=== PATIENT | female | born 1970 | race Two or more races ===

== ENCOUNTER 2025-01-27 18:10 | Inpatient (IN) | payer BC, MEDICAID ==
[~2025-01-27] VITALS: Ht 149.9 cm; Wt 63.9 kg
--- NOTE | 2025-01-27 18:44 | ED.PDOC ---
History of Present Illness HPI Comments 54 y/o F, with a history of HTN, presents with c/o speech aphasia, that began 2- 3 hours ago, this afternoon. Patient is a poor historian. She reports on sudden and unprovoked onset of difficulty expressing her thoughts and words via speech. Patient also endorses on having associated left-sided headache she woke with prior to speech aphasia that has since subsided on its own. No recent head injuries, prior ailments, sick contact, or history of stroke endorsed. She denies any vision changes, headaches, dizziness, facial droop, weakness, or further associated symptoms. Upon arrival to ED, patient was found with a blood pressure of 164/79 in triage. Chief Complaint: Headache Time Seen by MD: 18:30 Primary Care Provider: JOHNK Reviewed Notes: Nurses Notes, Medications, Allergies Allergies: Coded Allergies: NO KNOWN ALLERGIES (Unverified , 08/10/14) Information Source: Patient Mode of Arrival: Ambulatory Severity: Moderate Timing: Hours Duration: Since onset Prehospital treatment: None Review of Systems: REVIEW OF SYSTEMS: No fever, no chills, or fatigue HEENT: No sore throat, no earache, no congestion, no neck pain. Cardiac: No chest pain. No palpitations. Lungs: No shortness of breath, no cough. GI: No nausea, no vomiting, no diarrhea, no constipation, no abdominal pain : No dysuria, frequency, or urgency. No hematuria. Musculoskeletal: No joint pain , no joint swelling, no extremity edema. Skin: No rash, no itching. Neuro: Speech aphasia, No headache, no dizziness, no weakness Vital Signs Vital Signs Date Time Temp Pulse Resp B/P (MAP) Pulse Ox O2 Delivery O2 Flow Rate FiO2 01/27/25 21:23 110 174/93 01/27/25 21:15 98.0 15 94 98.0 01/27/25 19:45 Room Air* 0 21 Physical Exam General: Awake, alert and oriented. No acute distress. Skin: Skin in warm, dry and intact. Appropriate color for ethnicity. HEENT: The head is normocephalic and atraumatic. Conjunctivae are clear without exudates or hemorrhage. Sclera is non-icteric. EOM are intact. No signs of nystagmus. Eyelids are normal in appearance without swelling or lesions. Oral mucosa is pink and moist Neck: The neck is supple with normal range of motion. No JVD. Cardiac: Heart rate and rhythm are normal. No murmurs, gallops, or rubs are aus cultated. Respiratory: No signs of respiratory distress. Lung sounds are clear in all lobes bilaterally without rales, rhonchi, or wheezes. Abdominal: Abdomen is soft, non-tender without distention, guarding or rigidity. Bowel sounds are present and normoactive in all four quadrants. Extremities: Upper and lower extremities are atraumatic in appearance without deformity or edema. Neurological: The patient is awake, alert and oriented to person, place, and time with normal speech. Speech is clear. There is no facial asymmetry. Difficulty with word finding and slow to respond to commands Psychiatric: Appropriate mood and affect. Good judgement and insight. Past Medical History PAST MEDICAL HISTORY: HTN Surgical History: Appendectomy, BTL, Cholecystectomy, EDUCATION RN History: No Pertinent EDUCATION RN History Family History Family History: No family hx of DM, No family hx of Heart roxana, No family hx of HTN Social History Smoker: Non-Smoker Alcohol: Denies ETOH Use Drugs: Denies Drug Use Lives In: Home Was a procedure done? Was a procedure done?: No Differential Dx Considerations may include: CVA, TIA, anxiety, electrolyte imbalance, dehydration, toxic metabolites, drugs metabolic encephalopathy X-Ray, Labs, Meds, VS Vital Signs Date Time Temp Pulse Resp B/P (MAP) Pulse Ox O2 Delivery O2 Flow Rate FiO2 01/27/25 21:23 110 174/93 01/27/25 21:15 98.0 103 15 168/96 (120) 94 98.0 01/27/25 21:00 98.8 99 12 175/96 (122) 93 98.8 01/27/25 20:45 98.8 105 11 165/77 (106) 95 98.8 01/27/25 20:37 107 01/27/25 20:30 98.8 100 14 164/84 (110) 97 98.8 01/27/25 20:00 94 01/27/25 19:45 92 12 97 Room Air* 0 21 01/27/25 19:45 98.8 95 16 168/81 (110) 98.8 01/27/25 18:15 98.8 82 18 164/79 (107) 97 98.8 Lab Test 01/27/25 20:00 01/27/25 19:59 01/27/25 19:12 01/27/25 19:08 Range/Units Urine Color Light-yellow Yellow Urine Clarity Clear Clear Urine pH 7.0 5.0-9.0 Urine Specific [place] 1.047 H 1.001-1.035 Urine Protein Negative Negative Urine Ketones 1+ H Negative Urine Blood Negative Negative /uL Urine Nitrite Negative Negative Urine Bilirubin Negative Negative Urine Urobilinogen Normal Negative mg/dL Urine Leukocyte Esterase Negative Negative /uL Urine RBC 1 0 - 4 /hpf Urine Microscopic WBC 1 0-5 /HPF Urine Squamous Epithelial Cells Few <5 /hpf Urine Bacteria Few H None Seen /hpf Urine Creatinine 14.74 L 30.0-125.0 mg/dL Urine Protein/Creatinine Ratio 0.56 Urine Glucose 4+ H Normal mg/dL Urine Total Protein 8.3 1-14 mg/dL Urine Test Negative Negative Urine Opiates Screen Neg NEGATIVE Urine Fentanyl Screen Neg NEGATIVE Urine Barbiturates Screen Neg NEGATIVE Urine Phencyclidine Screen Neg NEGATIVE Urine Amphetamines Screen Neg NEGATIVE Urine Benzodiazepines Screen Neg NEGATIVE Urine Cocaine Screen Neg NEGATIVE Urine Cannabinoids Screen Neg NEGATIVE Creatine Kinase 90 34-145 U/L Troponin I High Sensitivity 192 *H 48 *H </=34 ng/L C-Reactive Protein High Sensitivity 0.56 <1.0 mg/dL White Blood Count 9.9 4.4-10.8 10^3/uL Red Blood Count 4.78 4.0-5.20 10^6/uL Hemoglobin 13.9 12.2-16.2 g/dL Hematocrit 41.4 36.0-46.0 % Mean Corpuscular Volume 86.7 80.0-100.0 fL Mean Corpuscular Hemoglobin 29.1 28.0-32.0 pg Mean Corpuscular Hemoglobin Concent 33.6 32.0-36.0 g/dL Red Cell Distribution Width 13.6 11.8-14.3 % Platelet Count 289 140-450 10^3/uL Mean Platelet Volume 7.5 6.9-10.8 fL Neutrophils (%) (Auto) 57.8 37.0-80.0 % Lymphocytes (%) (Auto) 34.3 10.0-50.0 % Monocytes (%) (Auto) 5.8 0.0-12.0 % Eosinophils (%) (Auto) 1.6 0.0-7.0 % Basophils (%) (Auto) 0.5 0.0-2.0 % Neutrophils # (Auto) 5.7 1.6-8.6 10 ^3/uL Lymphocytes # (Auto) 3.4 0.4-5.4 10 ^3/uL Monocytes # (Auto) 0.6 0-1.3 10 ^3/uL Eosinophils # (Auto) 0.2 0-0.8 10 ^3/uL Basophils # (Auto) 0 0-0.2 10 ^3/uL Nucleated Red Blood Cells 0.1 % Prothrombin Time 10.1 9.3-11.8 sec Prothrombin Time INR 0.95 0.9-1.15 Activated Partial Thromboplast Time 26.9 24.5-34.5 SEC Sodium Level 131 L 136-145 mmol/L Potassium Level 3.6 3.5-5.1 mmol/L Chloride Level 96 L 98-107 mmol/L Carbon Dioxide Level 26 20-31 mmol/L Anion Gap 9 5-15 Blood Urea Nitrogen 8 L 9-23 mg/dL Creatinine 0.67 0.550-1.02 mg/dL Glomerular Filtration Rate Calc 105 >90 mL/min BUN/Creatinine Ratio 11.9 10.0-20.0 Serum Glucose 353 H 74-106 mg/dL Hemoglobin A1c 12.0 H <5.7 % A1C Calcium Level 8.9 8.7-10.4 mg/dL Magnesium Level 1.8 1.6-2.6 mg/dL Total Bilirubin 0.7 0.2-1.0 mg/dL Aspartate Amino Transferase (AST) 27 <34 U/L Alanine Aminotransferase (ALT) 43 H 7-40 U/L Alkaline Phosphatase 160 H 46-116 U/L B-Type Natriuretic Peptide 9.26 0-100 pg/mL Total Protein 6.6 5.7-8.2 g/dL Albumin 4.2 3.2-4.8 g/dL Beta-Hydroxybutyric Acid 0.473 H < 0.4 mmol/L Prolactin 18.47 2.8-29.2 ng/mL Blood Gas Specimen Type Arterial Blood Gas Sample Site Left radial Blood Gas Patient Temperature 37.0 Arterial Blood Date Drawn [id number] Arterial Blood pH 7.499 H 7.350-7.450 Arterial Blood Partial Pressure CO2 28.7 L 32.0-45.0 mmHg Arterial Blood Partial Pressure O2 76.7 L 83.0-108.0 mmHg Arterial Blood HCO3 21.8 21.0-28.0 mmol/L Arterial Blood Oxygen Saturation 96.0 94.0-98.0 % Arterial Blood Base Excess -0.1 -2.0-3.0 mmol/L Arterial Blood Oxyhemoglobin 94.5 94.0-98.0 % Arterial Blood Carboxyhemoglobin 1.0 0.5-1.5 % Arterial Blood Methemoglobin 0.6 0.0-1.5 % Donnie Test Yes Blood Gas Total Hemoglobin 14.50 12.0-16.0 g/dL Blood Gas Modality Room air FiO2 % 21.0 Blood Gas Critical Value Read Back Yes Test 01/27/25 18:33 Range/Units POC Glucose 385 H 70-106 mg/dl Current Medications Medications (Trade) Dose Ordered Sig/Cm Route Start Time Stop Time Status Last Admin Sodium Chloride 1,000 ml @ 1,000 mls/hr Q1H ONCE IV 01/27/25 19:00 01/27/25 19:59 DC 01/27/25 19:35 Insulin Human Regular (InsuLIN R) 4 units ONCE ONCE IV 01/27/25 20:15 01/27/25 20:17 DC 01/27/25 20:29 Diagnostic Test (Pha) (Accu-Chek Comfort Curve T) 1 strip ONCE STAT 01/27/25 20:14 01/27/25 20:17 DC 01/27/25 20:26 Labetalol HCl (Labetalol HCl) 10 mg ONCE ONCE IV 01/27/25 21:15 01/27/25 21:16 DC 01/27/25 21:23 [place] [address] Ph: [phone] DIAGNOSTIC IMAGING Diagnostic Imaging Report : [id number] Signed PATIENT: JOVANI PULIDO ACCT: [id number] UNIT: [id number] : 1970 LOC: ER ROOM / BED: / AGE / SEX: 54 / F ADM STATUS: REG ER SERVICE [id number] ORDERING PHYSICIAN: NYA COTTO MD PROCEDURE(s): CXR1 - CHEST XRAY 1 VIEW REASON: suspected stroke ORDER NUMBER(s): [id number], ACCESSION NUMBER(s): [id number] CHEST RADIOGRAPH Indication: suspected stroke Technique: Single frontal view of the chest was obtained Comparison: None FINDINGS: Lines and Tubes: None Lungs: No focal consolidation. Pleura: No effusion. No pneumothorax. Cardiomediastinal contours: Unremarkable Bones: No acute osseous abnormality. IMPRESSION: No acute cardiopulmonary disease. ATED BY: NURIA PEPPER MD DICTATED DATE/TIME: 01/27/251926 SIGNED BY: NURIA PEPPER MD SIGNED DATE/TIME: 01/27/251926 CC: [place] [address] Ph: [phone] DIAGNOSTIC IMAGING Diagnostic Imaging Report : [id number] Signed PATIENT: JOVANI PULIDO ACCT: [id number] UNIT: [id number] : 1970 LOC: ER ROOM / BED: / AGE / SEX: 54 / F ADM STATUS: REG ER SERVICE [id number] ORDERING PHYSICIAN: NYA COTTO MD PROCEDURE(s): [place] - ANGIO HEAD/Neck REASON: suspected stroke ORDER NUMBER(s): [id number], ACCESSION NUMBER(s): [id number] INDICATION: suspected stroke COMPARISON: None TECHNIQUE: CTA head without and with intravenous contrast. CTA neck with intravenous contrast. 3D image postprocessing was performed on a dedicated workstation and images were used for interpretation and reporting. Radiation Dose Information: CT Dose: CTDI volume is 52.17 mGy. Dose-length product is 1554.63 mGy*cm FINDINGS: CT head: There is no evidence of acute intracranial hemorrhage, extra-axial collection, mass effect, midline shift, herniation or hydrocephalus. The ventricles, sulci and cisterns are age appropriate. The young-white differentiation is intact. The visualized paranasal sinuses and mastoid air cells are clear. The surrounding soft tissues and osseous structures are unremarkable. CTA head: There is normal enhancement of the visualized distal internal carotid, anterior and middle cerebral arteries. There is a normal anterior communicating artery complex. There are bilateral posterior communicating arteries. The vertebral, basilar, cerebellar and posterior cerebral arteries are within normal limits. The early parenchymal enhancement is grossly unremarkable. The visualized intracranial venous structures are grossly unremarkable. CTA neck: The visualized thoracic aortic arch and proximal great vessels are unremarkable. The left common, internal and external carotid arteries are within normal limits. The right common, internal and external carotid arteries are within normal limits. The cervical segments of the right and left vertebral arteries are within normal limits. The limited visualized lung apices are clear. The surrounding soft tissues and osseous structures are otherwise unremarkable. IMPRESSION: No evidence of acute intracranial hemorrhage, mass effect or hydrocephalus. No evidence of hemodynamically significant intracranial stenosis, proximal occlusion or aneurysm. No evidence of hemodynamically significant cervical stenosis or dissection. All CT scans at this medical facility are performed using dose modulation techniques as appropriate to a performed exam including the following: Automated exposure control was utilized; adjustment of the MA and/or KV according to patient size; and use of iterative reconstruction technique. ATED BY: EMMANUEL ATKINSON MD DICTATED DATE/TIME: 01/27/252109 SIGNED BY: EMMANUEL ATKINSON MD SIGNED DATE/TIME: 01/27/252109 CC: Time of 1ST Reevaluation: 19:00 Reevaluation 1ST: Unchanged Patient Education/Counseling: Other (Need for admission ) Family Education/Counseling: No Family Present SEPSIS Sepsis Screen Physician Orders Stroke Assessment (01/27/25 18:36) Vital Signs .PER UNIT PROTOCOL (01/27/25 18:36) Communications Consultant (01/27/25 18:36) Accurate Weight In Kg (01/27/25 18:36) Electrocardigram (01/27/25 18:36) Accucheck (01/27/25 18:36) Angio Head/Neck (01/27/25 18:36) Chest Xray 1 View (01/27/25 18:36) * Neurology Consult (01/27/25 18:36) 2 Large Bore Ivs (20mg Or Larg (01/27/25 18:36) Nursing Dysphagia Screen (01/27/25 18:36) Neuro Checks Per Unit Protocol (01/27/25 18:36) Electrocardigram (01/27/25 19:36) Electrocardigram (01/27/25 21:36) [place] Neuro Consult (01/27/25 18:36) Abg W/ Co-Ox (01/27/25 18:47) Saline Lock (01/27/25 18:47) Vital Signs Date Time Temp Pulse Resp B/P (MAP) Pulse Ox O2 Delivery O2 Flow Rate FiO2 01/27/25 21:23 110 174/93 01/27/25 21:15 98.0 103 15 168/96 (120) 94 98.0 01/27/25 21:00 98.8 99 12 175/96 (122) 93 98.8 01/27/25 20:45 98.8 105 11 165/77 (106) 95 98.8 01/27/25 20:37 107 01/27/25 20:30 98.8 100 14 164/84 (110) 97 98.8 01/27/25 20:00 94 01/27/25 19:45 92 12 97 Room Air* 0 21 01/27/25 19:45 98.8 95 16 168/81 (110) 98.8 01/27/25 18:15 98.8 82 18 164/79 (107) 97 98.8 Laboratory Tests Test 01/27/25 19:12 White Blood Count 9.9 10^3/uL (4.4-10.8) Medications Medications Dose Ordered Sig/Cm Route Start Time Stop Time Status Last Admin Dose Admin Diagnostic Test (Pha) 1 strip ONCE STAT 01/27/25 20:14 01/27/25 20:17 DC 01/27/25 20:26 Insulin Human Regular 4 units ONCE ONCE IV 01/27/25 20:15 01/27/25 20:17 DC 01/27/25 20:29 Labetalol HCl 10 mg ONCE ONCE IV 01/27/25 21:15 01/27/25 21:16 DC 01/27/25 21:23 Sodium Chloride 1,000 ml @ 1,000 mls/hr Q1H ONCE IV 01/27/25 19:00 01/27/25 19:59 DC 01/27/25 19:35 Departure 1 Departure Time of Disposition: 20:16 Impression: Primary Impression: Stroke-like symptom Additional Impressions: Hyperglycemia Elevated troponin I level Hypertension NSTEMI (non-ST elevated myocardial infarction) Disposition: 09 ADMITTED INPATIENT Condition: Stable Comments 54-year-old female who presented with confusion, difficulty With word finding. Was discussed with Neurology, recommendation MRI, patient is not a candidate For tPA at this time Patient found to be hyperglycemic with no known history of diabetes IV fluids, insulin administered in the ED Patient admitted to hospitalist service for further treatment, evaluation and monitoring. Patient's troponin increasing significantly. Heparin bolus and drip initiated in the emergency department. Extensive evaluation was performed in attempt to identify or rule out: (See differential diagnosis section) The following tests were ordered, and results were reviewed by me and discussed with patient: (See diagnostic results section) The following test were independently interpreted by me: N/A I reviewed and agreed with the following test results read by other providers: N/A I reviewed the following notes from the pt's past medical encounters: August 10, 2014 encounter for Urticaria Additional information was gathered from interviewing the following independent historians: N/A Discussion of management or test interpretation with external physician/other qualified health acute care nurse practitioner: Yes Addressed an acute or chronic illness that poses a threat to life or bodily function: Suspected CVA, hyperglycemia Decision regarding hospitalization or escalation of hospital level of care: Risk and benefits of admission for further treatment of patient's condition was considered. Due to patient's current clinical condition, high risk of decline and poor outcome if discharged and need for further inpatient management and monitoring, patient will be admitted to the hospital. Drug therapy requiring intensive monitoring for toxicity: IV Contrast, IV heparin Parenteral controlled substances: N/A Decision regarding elective major surgery with identified patient or procedure risk factors: N/A Decision regarding emergency major surgery: N/A Decision not to resuscitate or to de-escalate care because of poor prognosis: N/A Diagnosis or treatment significantly limited by social determinants of health: N/A Critical Care Note Critical Care Time?: No Stability Stability form required: No Heart Score Heart Score: Heart Score Response (Comments) Value History N/A 0 EKG N/A 0 Age N/A 0 Risk Factors N/A 0 Troponin N/A 0 Total 0 I personally scribed for NYA COTTO MD ([email or web address]) on 01/27/25 at 18:44. Electronically submitted by Laron Theodore ([email or web address]). I personally scribed for NYA COTTO MD ([email or web address]) on 01/27/25 at 19:33. Electronically submitted by Laron Theodore ([email or web address]). I personally scribed for NYA COTTO MD ([email or web address]) on 01/27/25 at 19:52. Electronically submitted by Laron Theodore ([email or web address]). I personally scribed for NYA COTTO MD ([email or web address]) on 01/27/25 at 21:33. Electronically submitted by Laron Theodore ([email or web address]). NYA COTTO MD Jan 27, 2025 18:44
[2025-01-27 19:15] LABS: Base Excess -0.1 mmol/L (-2.0-3.0)
--- NOTE | 2025-01-27 19:25 | BSKYNEURO ---
[facility] Note # Demographics Consult Type: Acute Stroke Level 1 (0-4.5 hrs) Patient Location: Emergency Room First Name: JOVANI Last Name: ASHOK Date of : 1970 Age: 54 Gender: Female Facility: [facility] Time of Initial Page (): 01/27/2025 18:52 Time of Return Call (): 01/27/2025 18:52 # HPI History: Here with difficulty speaking and walking today. Last Known Normal: prior to 1400 pst which is when she was found by . # Scores Time of exam and NIHSS (): 01/27/2025 19:18 Level of Consciousness 1a: [0] = Alert; keenly responsive LOC Questions 1b: [1] = Answers one correctly LOC Commands 1c: [0] = Performs both tasks correctly Best Gaze 2: [0] = Normal Visual 3: [0] = No visual loss Facial Palsy 4: [0] = Normal symmetrical movements Motor Arm Left 5a: [0] = No drift Motor Arm Right 5b: [0] = No drift Motor Leg Left 6a: [0] = No drift Motor Leg Right 6b: [0] = No drift Limb Ataxia 7: [0] = Absent Sensory 8: [0] = Normal Best Language 9: [1] = Alzn-al-yovvklbb aphasia Dysarthria 10: [0] = Normal Extinction and Inattention 11: [0] = No abnormality NIHSS Total: 2 # Data Glucose: - hyperglycemia [address]: - no bleed - preliminarily reviewed by me, please refer to radiology read for official reading # Assessment Impression: - Altered Mental Status Stroke vs toxometabolic cause. # Plan Thrombolytic/Intervention: Possible IA candidate Thrombolytic Exclusion: > 4.5 hours Possible IA Candidate: - no signs and symptoms of LVO - CTA pending Target Blood Pressure: - SBP < 220 sbp< 180 if cta negative for acute lesion Labs: - Ammonia - B12 - ua - urine drug screen - TSH Imaging: (urgency: STAT): - CT Angiogram Head and CT Angiogram Neck AND call back with results if abnormal Medication: asa 325 today Other: - If patient has any neurological deterioration please call me back immediately - would not pursue stroke work-up if MRI is negative - I have discussed my recommendations with the referring provider Additional Recommendations: mri brain if persistent deficits without etiology # Logistics Attestation of consult completion: The patient is located at: [facility]. Facility staff participated in the visit. I performed this telemedicine visit from my offsite office utilizing interactive 2 way audio and visual telecommunication technology. Total time spent in telemedicine encounter: I spent 21 minutes reviewing clinical data and/or imaging, obtaining history, examining the patient, communicating with the onsite care team, and in preparation of this report. Critical Care time: 21 minutes of this encounter were critical care time. Due to a high probability of clinically significant, life-threatening neurologic deterioration, the patient required my highest level of preparedness to intervene emergently. I spent this critical care time managing the patient in conjunction with on-site providers who requested my consultation. In addition to the above, this critical care time included recommendation and review of studies, including imaging; arranging an urgent treatment and management plan with on-site providers; evaluation of patient's response to treatment; and documentation. This critical care time was performed to assess and manage the high probability of imminent, life-threatening deterioration that could result in neurologic catastrophe. # Demographics First Name: JOVANI Last Name: ASHOK Facility: [facility] Electronically signed at 01/27/2025 19:24 ([place] Time) by MD Candice Alfred ZACHARY I MD Jan 27, 2025 19:25
--- NOTE | 2025-01-27 19:30 | DVH ---
CHEST RADIOGRAPH Indication: suspected stroke Technique: Single frontal view of the chest was obtained Comparison: None FINDINGS: Lines and Tubes: None Lungs: No focal consolidation. Pleura: No effusion. No pneumothorax. Cardiomediastinal contours: Unremarkable Bones: No acute osseous abnormality. IMPRESSION: No acute cardiopulmonary disease.
[2025-01-27 19:34] LABS: Basophils # (auto) 0 10 ^3/uL (0-0.2); Basophils % (auto) 0.5 % (0.0-2.0); Eosinophils # (auto) 0.2 10 ^3/uL (0-0.8); Eosinophils % (auto) 1.6 % (0.0-7.0); Hematocrit 41.4 % (36.0-46.0); Hemoglobin 13.9 g/dL (12.2-16.2); Lymphocytes # (auto) 3.4 10 ^3/uL (0.4-5.4); Lymphocytes % (auto) 34.3 % (10.0-50.0); Mean Corpuscular Hemoglobin 29.1 pg (28.0-32.0); Mean Corpuscular Hgb Conc. 33.6 g/dL (32.0-36.0); Mean Corpuscular Volume 86.7 fL (80.0-100.0); Monocytes # (auto) 0.6 10 ^3/uL (0-1.3); Monocytes % (auto) 5.8 % (0.0-12.0); Neutrophils # (auto) 5.7 10 ^3/uL (1.6-8.6); Neutrophils % (auto) 57.8 % (37.0-80.0); Nucleated Red Blood Cells % 0.1 %; Platelet Count (auto) 289 10^3/uL (140-450); Red Blood Cells 4.78 10^6/uL (4.0-5.20); Red Cell Distribution Width 13.6 % (11.8-14.3); White Blood Cell 9.9 10^3/uL (4.4-10.8)
[2025-01-27] MEDS: SODIUM CHLORIDE 0.9% 1,000 ML IV ONE (19:35)
[2025-01-27] MEDS: IOHEXOL 350 MG/ML 100ML IJ ONE (19:35)
[2025-01-27 19:45] VITALS: PULSE 92; RESP 12; O2SAT 97
[2025-01-27] MEDS ORDERED: LABETALOL HCL 20 MG/4 ML VL IV ONE (19:45)
[2025-01-27 19:51] LABS: Albumin 4.2 g/dL (3.2-4.8); Anion Gap 9 (5-15); Aspartate Aminotransferase 27 U/L (<34); BUN/Creatinine Ratio 11.9 (10.0-20.0); Calcium 8.9 mg/dL (8.7-10.4); Carbon Dioxide 26 mmol/L (20-31); Magnesium 1.8 mg/dL (1.6-2.6); Potassium 3.6 mmol/L (3.5-5.1); Total Protein 6.6 g/dL (5.7-8.2)
[2025-01-27 19:52] LABS: Bilirubin, Total 0.7 mg/dL (0.2-1.0); INR 0.95 (0.9-1.15); Partial Thromboplastin Time 26.9 SEC (24.5-34.5); Prothrombin Time 10.1 sec (9.3-11.8)
[2025-01-27 19:55] LABS: Alanine Aminotransferase 43 U/L (7-40); Alkaline Phosphatase 160 U/L (46-116); Blood Urea Nitrogen 8 mg/dL (9-23); Chloride 96 mmol/L (98-107); Glucose 353 mg/dL (74-106); Sodium 131 mmol/L (136-145)
[2025-01-27] MEDS ORDERED: DEXTROSE (50%) 50ML SYRG IV PRN ×3 (20:15→21:45)
[2025-01-27 20:26] LABS: Urine Bacteria FEW /hpf (None Seen); Urine Blood Negative /uL (Negative); Urine Clarity Clear (Clear); Urine Color Light-Yellow (Yellow); Urine Protein, UAD Negative (Negative); Urine Specific Gravity 1.047 (1.001-1.035); Urine Squamous Epithelial Cell FEW /hpf (<5); Urine Urobilinogen Normal (Negative); Urine WBC 1 /HPF (0-5)
[2025-01-27] MEDS: ACCU-CHEK COMFORT CURVE STRIP VI STA (20:26)
[2025-01-27] MEDS: InsuLIN REG 1unit/0.01ml Soln (100units/ml) IV ONE (20:29)
--- NOTE | 2025-01-27 21:12 | DVH ---
INDICATION: suspected stroke COMPARISON: None TECHNIQUE: CTA head without and with intravenous contrast. CTA neck with intravenous contrast. 3D image postprocessing was performed on a dedicated workstation and images were used for interpretation and reporting. Radiation Dose Information: CT Dose: CTDI volume is 52.17 mGy. Dose-length product is 1554.63 mGy*cm FINDINGS: CT head: There is no evidence of acute intracranial hemorrhage, extra-axial collection, mass effect, midline s hift, herniation or hydrocephalus. The ventricles, sulci and cisterns are age appropriate. The young -white differentiation is intact. The visualized paranasal sinuses and mastoid air cells are clear. The surrounding soft tissues and osseous structures are unremarkable. CTA head: There is normal enhancement of the visualized distal internal carotid, anterior and middle cerebral a rteries. There is a normal anterior communicating artery complex. There are bilateral posterior com municating arteries. The vertebral, basilar, cerebellar and posterior cerebral arteries are within n ormal limits. The early parenchymal enhancement is grossly unremarkable. The visualized intracrania l venous structures are grossly unremarkable. CTA neck: The visualized thoracic aortic arch and proximal great vessels are unremarkable. The left common, internal and external carotid arteries are within normal limits. The right common, internal and external carotid arteries are within normal limits. The cervical segments of the right and left vertebral arteries are within normal limits. The limited visualized lung apices are clear. The surrounding soft tissues and osseous structures ar e otherwise unremarkable. IMPRESSION: No evidence of acute intracranial hemorrhage, mass effect or hydrocephalus. No evidence of hemodynamically significant intracranial stenosis, proximal occlusion or aneurysm. No evidence of hemodynamically significant cervical stenosis or dissection. All CT scans at this medical facility are performed using dose modulation techniques as appropriate t o a performed exam including the following: Automated exposure control was utilized; adjustment of th e MA and/or KV according to patient size; and use of iterative reconstruction technique.
[2025-01-27] MEDS ORDERED: ACCU-CHEK COMFORT CURVE STRIP VI ONE (21:15)
[2025-01-27] MEDS: LABETALOL HCL 20 MG/4 ML VL IV ONE ×2 (21:23→22:14)
[2025-01-27] MEDS ORDERED: NITROGLYCERIN 0.4 MG SL TAB SL PRN (21:30)
[2025-01-27 22:04] LABS: CRP High Sensitivity 0.56 mg/dL (<1.0)
[2025-01-27] MEDS: ASPirin 81 mg TAB PO ONE (22:11)
[2025-01-27] MEDS: ATORVASTATIN 20 MG TAB PO ONE (22:12)
--- NOTE | 2025-01-27 22:20 | DVHINCON2 ---
Date of service: Jan 27, [address] Betts Reason for Consultation Stroke-like syndrome History of Present Illness Mr. Encarnacion is a 54 years old right-handed female with a history of hypertension, overweight, the patient was brought to the [facility] on 01/27/2025 with a chief complaint of speech disturbance, at that time, she is alert, a presumed fully oriented, but is with problem to express herself, the history is obtained from her daughter, I have also reviewed the chart When her returned home, he noticed the patient's speech was slurry. According to ER note, the patient had unprovoked new onset difficulty expressing her sought. She reports mild left sided headache She has never had similar problems previously, no history of stroke heart attack She snores loud, and family has noticed signs of sleep apnea on her, she also wakes up up from sleep choking sometimes Urinalysis, 01/27/2025: Unremarkable CBC, 01/27/25: ok TBI/AST/ALT/AP, 01/27/2025: 03/07/2040 3/160 Glucose, 01/27/2025: 385 Beta hydroxybutyric acid, 01/27/2025: 0.473 CT head, 01/27/2025: No evidence of acute intracranial hemorrhage, mass effect or hydrocephalus. CT head, neck, 01/27/2025: No evidence of hemodynamically significant intracranial stenosis, proximal occlusion or aneurysm. No evidence of hemodynamically significant cervical stenosis or dissection. Past Medical History Hypertension, overweight Past Surgical History Cholecystectomy Family History Hypertension, diabetes, stroke Social History She is not a tobacco smoke, she denies a history of alcohol or recreational substance abuse Allergies: Coded Allergies: NO KNOWN ALLERGIES (Unverified , 08/10/14) Current Medications Current Medications Medications (Trade) Dose Ordered Sig/Cm Route PRN Reason Start Time Stop Time Status Last Admin Dextrose 50 ml PRN PRN IV Blood Sugar LESS THAN 60 01/27/25 20:15 UNV Dextrose 50 ml PRN PRN IV Blood Sugar LESS THAN 60 01/27/25 20:15 Cancel Diagnostic Test (Pha) (Accu-Chek Comfort Curve T) 1 strip ONCE STAT 01/27/25 20:14 01/27/25 20:17 DC 01/27/25 20:26 Morphine Sulfate 2 mg Q30M PRN IV FOR CHEST PAIN 01/27/25 21:30 Nitroglycerin (Ntrostat Sublingual) 0.4 mg Q5MINP PRN SL FOR CHEST PAIN 01/27/25 21:30 Diagnostic Test (Pha) (Accu-Chek Comfort Curve T) 1 strip Q4H 01/28/25 00:00 Insulin Human Regular (InsuLIN R) Q4H SC 01/28/25 00:00 Dextrose 50 ml UD PRN IV Blood Sugar LESS THAN 60 01/27/25 21:45 Review of Systems As above, the other systems are negative Vital Signs Vital Signs Date Time Temp Pulse Resp B/P (MAP) Pulse Ox O2 Delivery O2 Flow Rate FiO2 01/27/25 21:23 110 174/93 01/27/25 20:30 98.8 14 97 98.8 Physical Exam GENERAL EXAM: General: the patient is well developed and nourished. No acute distress. HEENT: Normocephalic, neck is supple, no carotid bruits. No mass. RESPIRATORY: Normal respiratory effort with symmetrical lung expansion. Lungs clear to auscultation. CARDIOVASCULAR: Regular rate and rhythm with no murmurs. S1, S2. ABDOMEN: Soft, nontender, normal bowel sound NEUROLOGICAL: MENTAL STATUS: Waking alert, a presumed she is oriented fully SPEECH, LANGUAGE, HIGHER CORTICAL FUNCTION: Expressive aphasia, voice is clear. CRANIAL NERVES: #2: Intact visual engle to confrontation. The optic discs were sharp. #3,4,6: Pupils are equal, round and reactive. EOMs full and conjugate. No nystagmus. #5: Facial sensation intact in all three divisions bilaterally. Mandibular strength intact. #7: Facial muscles symmetrical and strength intact. #8: Hearing grossly normal to voice. #9,10: Uvula and soft palate rise in the midline. Swallow and voice are normal. #11: Trapezius and sternomastoid strength intact bilaterally. #12: Tongue midline. No fasciculations or atrophy. SENSATION: Sensation to touch and pinprick is normal. MOTOR: Normal tone in the upper and lower extremity. Normal muscle bulk. No fasciculations. No abnormal movements or posturing. Muscle strength of the major groups in the upper extremities is 5/5. Muscle strength of the major groups in the lower extremities is 5/5. REFLEXES: Deep tendon reflexes are symmetrical. No pathological reflexes. CEREBELLAR/COORDINATION: Finger to noseis normal bilaterally. GAIT/STATION: deferred. Labs/Diagnostic Data Labs Test 01/27/25 21:58 01/27/25 20:00 01/27/25 19:59 01/27/25 19:12 Range/Units Urine Color Light-yellow Yellow Urine Clarity Clear Clear Urine pH 7.0 5.0-9.0 Urine Specific [place] 1.047 H 1.001-1.035 Urine Protein Negative Negative Urine Ketones 1+ H Negative Urine Blood Negative Negative /uL Urine Nitrite Negative Negative Urine Bilirubin Negative Negative Urine Urobilinogen Normal Negative mg/dL Urine Leukocyte Esterase Negative Negative /uL Urine RBC 1 0 - 4 /hpf Urine Microscopic WBC 1 0-5 /HPF Urine Squamous Epithelial Cells Few <5 /hpf Urine Bacteria Few H None Seen /hpf Urine Glucose 4+ H Normal mg/dL White Blood Count 9.9 4.4-10.8 10^3/uL Red Blood Count 4.78 4.0-5.20 10^6/uL Hemoglobin 13.9 12.2-16.2 g/dL Hematocrit 41.4 36.0-46.0 % Mean Corpuscular Volume 86.7 80.0-100.0 fL Mean Corpuscular Hemoglobin 29.1 28.0-32.0 pg Mean Corpuscular Hemoglobin Concent 33.6 32.0-36.0 g/dL Red Cell Distribution Width 13.6 11.8-14.3 % Platelet Count 289 140-450 10^3/uL Mean Platelet Volume 7.5 6.9-10.8 fL Neutrophils (%) (Auto) 57.8 37.0-80.0 % Lymphocytes (%) (Auto) 34.3 10.0-50.0 % Monocytes (%) (Auto) 5.8 0.0-12.0 % Eosinophils (%) (Auto) 1.6 0.0-7.0 % Basophils (%) (Auto) 0.5 0.0-2.0 % Neutrophils # (Auto) 5.7 1.6-8.6 10 ^3/uL Lymphocytes # (Auto) 3.4 0.4-5.4 10 ^3/uL Monocytes # (Auto) 0.6 0-1.3 10 ^3/uL Eosinophils # (Auto) 0.2 0-0.8 10 ^3/uL Basophils # (Auto) 0 0-0.2 10 ^3/uL Nucleated Red Blood Cells 0.1 % Prothrombin Time 10.1 9.3-11.8 sec Prothrombin Time INR 0.95 0.9-1.15 Activated Partial Thromboplast Time 26.9 24.5-34.5 SEC Sodium Level 131 L 136-145 mmol/L Potassium Level 3.6 3.5-5.1 mmol/L Chloride Level 96 L 98-107 mmol/L Carbon Dioxide Level 26 20-31 mmol/L Anion Gap 9 5-15 Blood Urea Nitrogen 8 L 9-23 mg/dL Creatinine 0.67 0.550-1.02 mg/dL Glomerular Filtration Rate Calc 105 >90 mL/min BUN/Creatinine Ratio 11.9 10.0-20.0 Serum Glucose 353 H 74-106 mg/dL Calcium Level 8.9 8.7-10.4 mg/dL Magnesium Level 1.8 1.6-2.6 mg/dL Total Bilirubin 0.7 0.2-1.0 mg/dL Aspartate Amino Transferase (AST) 27 <34 U/L Alanine Aminotransferase (ALT) 43 H 7-40 U/L Alkaline Phosphatase 160 H 46-116 U/L B-Type Natriuretic Peptide 9.26 0-100 pg/mL Total Protein 6.6 5.7-8.2 g/dL Albumin 4.2 3.2-4.8 g/dL Beta-Hydroxybutyric Acid 0.473 H < 0.4 mmol/L Test 01/27/25 19:08 01/27/25 18:33 Range/Units Blood Gas Specimen Type Arterial Blood Gas Sample Site Left radial Blood Gas Patient Temperature 37.0 Arterial Blood Date Drawn [id number] Arterial Blood pH 7.499 H 7.350-7.450 Arterial Blood Partial Pressure CO2 28.7 L 32.0-45.0 mmHg Arterial Blood Partial Pressure O2 76.7 L 83.0-108.0 mmHg Arterial Blood HCO3 21.8 21.0-28.0 mmol/L Arterial Blood Oxygen Saturation 96.0 94.0-98.0 % Arterial Blood Base Excess -0.1 -2.0-3.0 mmol/L Arterial Blood Oxyhemoglobin 94.5 94.0-98.0 % Arterial Blood Carboxyhemoglobin 1.0 0.5-1.5 % Arterial Blood Methemoglobin 0.6 0.0-1.5 % Donnie Test Yes Blood Gas Total Hemoglobin 14.50 12.0-16.0 g/dL Blood Gas Modality Room air FiO2 % 21.0 Blood Gas Critical Value Read Back Yes POC Glucose 385 H 70-106 mg/dl Assessment Acute aphasia, to rule out acute stroke Sleep-related breathing disorder Overweight Plan/Recommendation Monitoring Supportive treatment UDS Lipitor profile Echocardiogram MR head Telemetry Aspirin 81 mg daily Lipitor 20 mg daily Speech pathology evaluation Stabilize blood pressure Glucose control Avoid fever NPO for now except for medications IV fluid Speech pathology evaluation More recommendation per clinical course Progress: Poor This medical document was created using an electronic medical record system with [employer] computerized dictation system. Although this document has been carefully reviewed, there may still be some phonetic and typographical errors. These areas are purely typographical due to imperfections of the software programs, and do not reflect any compromise in the patient's medical care. Plan discussed with: Daughter, Other JENNY GARCIA MD Jan 27, 2025 22:19
[2025-01-27 22:24] LABS: Protein, Urine 8.3 mg/dL (1-14)
[2025-01-27 22:27] LABS: Creatinine, Urine 14.74 mg/dL (30.0-125.0); Urine Protein/Creatinine Ratio 0.56
--- NOTE | 2025-01-27 22:28 | DVHHPRES ---
History of Present Illness Resident Creating Document: TAYLOR WHIPPLE RESIDENT History of Present Illness 54-year-old female with past medical history of hypertension and possible diabetes mellitus presented with complaints of "not able to speak what she is thinking" since 1400 hours. The patient was doing her normal routine homework when she started feeling that she is not able to speak what she is thinking. Patient was observed by her who mentioned that patient did not pass out, did not have any seizure activity, do not have any other neurological deficit. Patient that she had left-sided headache 1-2 days before the event. Blood pressure measured at home revealed a systolic blood pressure in 190s. Patient denied any chest pain, shortness of breath, orthopnea, PND, palpitations, nausea, vomiting, abdominal pain, constipation. Denied any blurry vision, oliguria. Currently seen and examined at bedside. Patient was mentioning improvement in her symptoms denied any other complaints. Past medical history Diabetes mellitus questionable Hypertension Past surgical history Cholecystectomy 20 years ago No recent surgery Medication history Metformin Losartan Social history Patient denied smoking, alcohol, marijuana or any other drug intake Patient lives with Allergic history No known allergies Family history Stroke in mother and stroke in brother Review of Systems Review of Systems as described in the HPI Allergies: Coded Allergies: NO KNOWN ALLERGIES (Unverified , 08/10/14) Medications Current Medications Medications Dose Ordered Sig/Cm Route Start Time Stop Time Status Last Admin Dose Admin Dextrose 50 ml PRN PRN IV 01/27/25 20:15 UNV Dextrose 50 ml PRN PRN IV 01/27/25 20:15 Cancel Morphine Sulfate 2 mg Q30M PRN IV 01/27/25 21:30 Nitroglycerin 0.4 mg Q5MINP PRN SL 01/27/25 21:30 Diagnostic Test (Pha) 1 strip Q4H 01/28/25 00:00 Insulin Human Regular Q4H SC 01/28/25 00:00 Dextrose 50 ml UD PRN IV 01/27/25 21:45 Exam Vital Signs Vital Signs Date Time Temp Pulse Resp B/P (MAP) Pulse Ox O2 Delivery O2 Flow Rate FiO2 01/27/25 22:14 92 187/97 01/27/25 20:30 98.8 14 97 98.8 Exam Examination General Appearance: Alert, Oriented X3, Cooperative, No acute distress HEENT: EOMI Respiratory: Clear to auscultation, Normal air movement Cardiovascular: Regular rate, Normal S1, Normal S2 Abdominal: Normal bowel sounds Extremities: No cyanosis, No edema, Normal pulses, No tenderness/swelling Skin: No rashes, No breakdown Neuro: Normal gait, Normal speech, Strength at 5/5 X4 ext, Normal tone, Sens ation intact, Cranial nerves 3-12 NL, Reflexes 2+ Psych/Mental Status: Mental status NL, Mood NL POCUS done at bedside revealed - Labs/Xrays Labs Test 01/27/25 21:58 01/27/25 20:00 01/27/25 19:59 01/27/25 19:12 Range/Units Urine Color Light-yellow Yellow Urine Clarity Clear Clear Urine pH 7.0 5.0-9.0 Urine Specific [place] 1.047 H 1.001-1.035 Urine Protein Negative Negative Urine Ketones 1+ H Negative Urine Blood Negative Negative /uL Urine Nitrite Negative Negative Urine Bilirubin Negative Negative Urine Urobilinogen Normal Negative mg/dL Urine Leukocyte Esterase Negative Negative /uL Urine RBC 1 0 - 4 /hpf Urine Microscopic WBC 1 0-5 /HPF Urine Squamous Epithelial Cells Few <5 /hpf Urine Bacteria Few H None Seen /hpf Urine Glucose 4+ H Normal mg/dL White Blood Count 9.9 4.4-10.8 10^3/uL Red Blood Count 4.78 4.0-5.20 10^6/uL Hemoglobin 13.9 12.2-16.2 g/dL Hematocrit 41.4 36.0-46.0 % Mean Corpuscular Volume 86.7 80.0-100.0 fL Mean Corpuscular Hemoglobin 29.1 28.0-32.0 pg Mean Corpuscular Hemoglobin Concent 33.6 32.0-36.0 g/dL Red Cell Distribution Width 13.6 11.8-14.3 % Platelet Count 289 140-450 10^3/uL Mean Platelet Volume 7.5 6.9-10.8 fL Neutrophils (%) (Auto) 57.8 37.0-80.0 % Lymphocytes (%) (Auto) 34.3 10.0-50.0 % Monocytes (%) (Auto) 5.8 0.0-12.0 % Eosinophils (%) (Auto) 1.6 0.0-7.0 % Basophils (%) (Auto) 0.5 0.0-2.0 % Neutrophils # (Auto) 5.7 1.6-8.6 10 ^3/uL Lymphocytes # (Auto) 3.4 0.4-5.4 10 ^3/uL Monocytes # (Auto) 0.6 0-1.3 10 ^3/uL Eosinophils # (Auto) 0.2 0-0.8 10 ^3/uL Basophils # (Auto) 0 0-0.2 10 ^3/uL Nucleated Red Blood Cells 0.1 % Prothrombin Time 10.1 9.3-11.8 sec Prothrombin Time INR 0.95 0.9-1.15 Activated Partial Thromboplast Time 26.9 24.5-34.5 SEC Sodium Level 131 L 136-145 mmol/L Potassium Level 3.6 3.5-5.1 mmol/L Chloride Level 96 L 98-107 mmol/L Carbon Dioxide Level 26 20-31 mmol/L Anion Gap 9 5-15 Blood Urea Nitrogen 8 L 9-23 mg/dL Creatinine 0.67 0.550-1.02 mg/dL Glomerular Filtration Rate Calc 105 >90 mL/min BUN/Creatinine Ratio 11.9 10.0-20.0 Serum Glucose 353 H 74-106 mg/dL Calcium Level 8.9 8.7-10.4 mg/dL Magnesium Level 1.8 1.6-2.6 mg/dL Total Bilirubin 0.7 0.2-1.0 mg/dL Aspartate Amino Transferase (AST) 27 <34 U/L Alanine Aminotransferase (ALT) 43 H 7-40 U/L Alkaline Phosphatase 160 H 46-116 U/L B-Type Natriuretic Peptide 9.26 0-100 pg/mL Total Protein 6.6 5.7-8.2 g/dL Albumin 4.2 3.2-4.8 g/dL Beta-Hydroxybutyric Acid 0.473 H < 0.4 mmol/L Test 01/27/25 19:08 01/27/25 18:33 Range/Units Blood Gas Specimen Type Arterial Blood Gas Sample Site Left radial Blood Gas Patient Temperature 37.0 Arterial Blood Date Drawn [id number] Arterial Blood pH 7.499 H 7.350-7.450 Arterial Blood Partial Pressure CO2 28.7 L 32.0-45.0 mmHg Arterial Blood Partial Pressure O2 76.7 L 83.0-108.0 mmHg Arterial Blood HCO3 21.8 21.0-28.0 mmol/L Arterial Blood Oxygen Saturation 96.0 94.0-98.0 % Arterial Blood Base Excess -0.1 -2.0-3.0 mmol/L Arterial Blood Oxyhemoglobin 94.5 94.0-98.0 % Arterial Blood Carboxyhemoglobin 1.0 0.5-1.5 % Arterial Blood Methemoglobin 0.6 0.0-1.5 % Donnie Test Yes Blood Gas Total Hemoglobin 14.50 12.0-16.0 g/dL Blood Gas Modality Room air FiO2 % 21.0 Blood Gas Critical Value Read Back Yes POC Glucose 385 H 70-106 mg/dl Assessment/Plan Assessment/Plan # Stroke like symptoms ?TIA/Stroke ?Hypertensive encephalopathy ?hyperglycemia -head CT and Head and neck CT Angio reveals IMPRESSION: No evidence of acute intracranial hemorrhage, mass effect or hydrocephalus. No evidence of hemodynamically significant intracranial stenosis, proximal occlusion or aneurysm. No evidence of hemodynamically significant cervical stenosis or dissection. Neurology consultation ASA 325 mg and high dose statins Controlled blood pressure reduction ( reduction no more than 25% in 24 hours) # NSTEMI likely due to hypertensive emergency trops 48, 192 and 896 ASA 325 mg and high dose statins will start heparin drip considering significant elevations, but patient is denying Chest pain and multiple EKGs show no significant ST changes Cardiology consult # uncontrolled DM -Hemoglobin A1C 12.0 -lantus 15 units -sliding scale # hypertensive emergency with hypertensive encephalopathy -IV labetalol PNR -Keep SBP target of 160 -echo -renal artery duplex -workup for secondary causes -Head CT -TSH -s calcium CPAP for possible Sleep Apnea # ?Sleep Apnea CPAP for possible Sleep Apnea #Dyslipidemia -statins Family at bedside explained about the condition of the patient Case discussion with Dr Fernandez Plan discussed with: Patient, Spouse, Daughter My Orders Orders - TAYLOR WHIPPLE RESIDENT Procedure Category Date Status Time Admit ADMIT 01/27/25 Transmitted 21:28 Oxygen By Nasal RT 01/27/25 Transmitted Cannula 21:28 Stat Ekg For Chest GAYLE 01/27/25 In Process Pain 21:28 Notify Of Changes GAYLE 01/27/25 In Process From Base 21:28 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 Rodriguez CONS 01/27/25 Transmitted [place] 21:28 Drug Screen LAB 01/27/25 In Process 21:37 Prolactin LAB 01/27/25 In Process 21:37 Lactic Acid W/ Reflex LAB 01/27/25 In Process Order 21:37 Creatine Kinase LAB 01/27/25 In Process 21:37 Swallow Eval Follow Up GAYLE 01/27/25 In Process 21:37 C-Reactive Protein LAB 01/27/25 In Process 21:37 Erythrocyte LAB 01/27/25 In Process Sedimentation Rate 21:[address] 01/27/25 Transmitted 21:43 Blood Alcohol LAB 01/27/25 In Process 21:43 Hemoglobin A1c LAB 01/27/25 In Process 21:43 Glucose Blood PHA 01/28/25 In Process (Accu-Chek Comfort 00:00 Insulin R (Human) PHA 01/28/25 In Process (Insulin R) 00:00 Dextrose 50% Syringe PHA 01/27/25 In Process 21:45 Urine LAB 01/27/25 In Process Protein/Creatinine Test, Urine LAB 01/27/25 In Process 20:00 Thyroid Stimulating LAB 01/27/25 In Process Hormone 22:02 Vitamin B12 LAB 01/27/25 In Process 22:02 Folate (Folic Acid) LAB 01/27/25 In Process 22:02 Labetalol Hcl PHA 01/27/25 Transmitted (Labetalol Hcl) 22:30 Communication Order ORDERS 01/27/25 Transmitted 22:23 Enalaprilat Injection PHA 01/27/25 Transmitted (Vasotec Injection 22:30 Date of Service: Jan 27, 2025 Billing Provider: VITO FERNANDEZ MD Common Visit Codes: 24435-YSIISUA INP/OBS CARE (HIGH) TAYLOR WHIPPLE RESIDENT Jan 27, 2025 22:28 VITO FERNANDEZ MD Jan 29, 2025 19:14
[2025-01-27] MEDS ORDERED: LABETALOL HCL 20 MG/4 ML VL IV PRN ×2 (22:30→23:00)
[2025-01-27 22:36] LABS: Amphetamine Screen, Urine Neg (NEGATIVE); Barbiturate Scree,Urine Neg (NEGATIVE); Benzodiazephine Screen, Urine Neg (NEGATIVE); Cannabinoid Screen, Urine Neg (NEGATIVE); Cocaine Screen, Urine Neg (NEGATIVE); Opiate Scree,Urine Neg (NEGATIVE); Phencyclidine Screen, Urine Neg (NEGATIVE)
[2025-01-27] MEDS: ENALAPRILAT 1.25 MG/ML-1ML VIAL IV PRN (22:48)
[2025-01-27 22:49] LABS: Folate (Folic Acid) 27.54 ng/mL (>5.38)
[2025-01-27 22:55] LABS: Erythrocyte Sedimentation Rate 10 mm/hr (0-20)
[2025-01-27] MEDS ORDERED: ENALAPRILAT 1.25 MG/ML-1ML VIAL IV PRN (23:00)
[2025-01-27] MEDS ORDERED: LORazepam 2MG/ML-1ML VIAL IV PRN (23:00)
[2025-01-27] MEDS ORDERED: ASPirin 300 MG RECTAL SUPP PR ONE (23:00)
[2025-01-27] MEDS ORDERED: ACETAMINOPHEN 650 MG RECT SUPP PR PRN (23:00)
[2025-01-27 23:21] LABS: INR 0.95 (0.9-1.15); Partial Thromboplastin Time 26.4 SEC (24.5-34.5); Prothrombin Time 10.1 sec (9.3-11.8)
[2025-01-27 23:23] LABS: Cholesterol 226 mg/dL (< 200); HDL Cholesterol 33 mg/dL (40-59); LDL Cholesterol 149 mg/dL (< 100); Triglycerides 295 mg/dL (< 150)
[2025-01-27] MEDS: MORPHINE SULFATE INJ 2 MG/ml SYRG IV PRN (23:24)
[2025-01-27] MEDS: HEPARIN SODIUM (PORCINE) 5000 UNITS/ML 1ML VIAL IV ONE (23:34)
[2025-01-27] MEDS: HEPARIN DRIP/D5W 100UNITS/ML 250 ML IV SCH (23:37)
[2025-01-28] MEDS: INSULIN LANTUS (GLARGINE) 1 /0.01ml (100units/ml) SC SCH
[2025-01-28] MEDS: INSULIN LANTUS (GLARGINE) 1 /0.01ml (100units/ml) SC ONE (00:08)
[2025-01-28] MEDS: ACCU-CHEK COMFORT CURVE STRIP VI SCH (00:13)
[2025-01-28] MEDS: InsuLIN REG 1unit/0.01ml Soln (100units/ml) SC SCH (00:14)
[2025-01-28] MEDS: ASPirin 81 mg TAB PO ONE ×2 (00:52→10:15)
[2025-01-28 01:29] VITALS: BP 142/94; PULSE 73; RESP 15; TEMP 98.9; O2SAT 97
--- NOTE | 2025-01-28 05:55 | DVH ---
INDICATION: Hypertension TECHNIQUE: Multiple real-time sonographic images of the kidneys and bladder were obtained. Duplex Doppler evaluation including color Doppler and spectral/pulsed waveform analysis of the bilate ral renal arteries was performed. COMPARISON: None FINDINGS: The right kidney measures 9.9 cm in length. The right renal echogenicity, contour and cortical thickn ess are within normal limits. No hydronephrosis or large masses/calculi are seen. The left kidney measures 10.3 cm in length. The left renal echogenicity, contour, and cortical thickn ess are within normal limits. No hydronephrosis or large masses/calculi are seen. Aorta peak systolic velocity, 42 cm/s Right renal artery peak systolic velocity, 115 cm/s (< 180 cm/s = normal). Left renal artery peak systolic velocity 62 cm/s (< 180 cm/s = normal). Right RAR : 2.7 (< 3.5, normal) Left RAR 1.5 (< 3.5, normal) Right RI: 0.7 (< 0.75, normal) Left RI: 0.7 (< 0.75, normal) IMPRESSION: No findings to suggest renal artery stenosis. *Nuria [employer] in Noninvasive Vascular Diagnosis 2002
[2025-01-28 06:52] LABS: INR 0.99 (0.9-1.15); Partial Thromboplastin Time 49.8 SEC (24.5-34.5); Prothrombin Time 10.5 sec (9.3-11.8)
--- NOTE | 2025-01-28 07:17 | ECG ---
[facility] Test Date: 2025-01-27 Test Time: 22:49:37 Pat Name: JOVANI PULIDO Department: ED Room: [address] [place] [address] Gender: F Cell Stripper Final: VLADIMIR : 1970 Requested By: NYA COTTO Order Number: [id number] Reading MD: Nader Hall Measurements Intervals [place] Rate: 87 P: 52 OR: 157 QRS: 58 QRSD: 97 T: 57 QT: 369 QTc: 444 Interpretive Statements Sinus rhythm Electronically Signed On 01-29-2025 21:17:50 PDT by Nader Hall Please click the below link to view image of tracing.
--- NOTE | 2025-01-28 07:17 | ECG ---
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
--- NOTE | 2025-01-28 07:18 | ECG ---
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
[2025-01-28 07:26] VITALS: O2SAT 96
[2025-01-28 07:28] LABS: Basophils # (auto) 0 10 ^3/uL (0-0.2); Basophils % (auto) 0.4 % (0.0-2.0); Eosinophils # (auto) 0.1 10 ^3/uL (0-0.8); Hematocrit 41.6 % (36.0-46.0); Hemoglobin 13.8 g/dL (12.2-16.2); Lymphocytes # (auto) 2.7 10 ^3/uL (0.4-5.4); Lymphocytes % (auto) 23.6 % (10.0-50.0); Mean Corpuscular Hemoglobin 28.9 pg (28.0-32.0); Mean Corpuscular Hgb Conc. 33.1 g/dL (32.0-36.0); Mean Corpuscular Volume 87.4 fL (80.0-100.0); Monocytes # (auto) 0.7 10 ^3/uL (0-1.3); Monocytes % (auto) 6.2 % (0.0-12.0); Neutrophils # (auto) 7.8 10 ^3/uL (1.6-8.6); Neutrophils % (auto) 68.8 % (37.0-80.0); Nucleated Red Blood Cells % 0.1 %; Platelet Count (auto) 259 10^3/uL (140-450); Red Blood Cells 4.76 10^6/uL (4.0-5.20); Red Cell Distribution Width 13.9 % (11.8-14.3); White Blood Cell 11.3 10^3/uL (4.4-10.8)
[2025-01-28 07:34] LABS: Chloride 103 mmol/L (98-107); Potassium 3.7 mmol/L (3.5-5.1)
[2025-01-28 07:35] LABS: Anion Gap 11 (5-15); Carbon Dioxide 21 mmol/L (20-31)
[2025-01-28 07:40] LABS: BUN/Creatinine Ratio 11.1 (10.0-20.0)
[2025-01-28 07:41] LABS: Magnesium 2.2 mg/dL (1.6-2.6)
[2025-01-28 07:43] LABS: Blood Urea Nitrogen 6 mg/dL (9-23); Calcium 8.3 mg/dL (8.7-10.4); Glucose 211 mg/dL (74-106); Sodium 135 mmol/L (136-145)
--- NOTE | 2025-01-28 08:31 | DVH ---
MRI BRAIN HEAD WO CONTRAST INDICATION: rule out stroke EXAM DATE: 01/28/2025 07:51 AM COMPARISON: None PROCEDURE: Using a 1.5 Merary scanner, multisequence multiplanar imaging of the brain was obtained. FINDINGS: Left parietal lobe and left insula diffusion restriction is consistent with an acute infarc t. The brain otherwise shows normal morphology and signal characteristics. No abnormal or susceptibil ity hypointensity is present. The ventricles are normal in size. The midline structures are intact. T he major intracranial flow voids are present. The aerated spaces are normal. The orbital contents and extracranial soft tissues appear normal. IMPRESSION: Left parietal lobe and left insula diffusion restriction is consistent with an acute / hyperacute inf arct. Critical Result: Infarct Findings discussed with , dr jaimes at 01/28/2025 08:28 AM and acknowledged receipt and understandin g of the findings.
[2025-01-28 08:35] VITALS: PULSE 83; PULSE 92; RESP 12; RESP 13; O2SAT 95; O2SAT 97
--- NOTE | 2025-01-28 09:00 | CONS ---
Pharmacy Clinical Information: HEPARIN PROTOCOL PREVIOUS RATE 800UNITS/HR (CURRENT APTT: 49.8) CONTINUE SAME RATE OF 800UNITS/HR, NO CHANGE NEXT APTT DRAW @1130 RN MALDONADO AWARE PER PHARMACY PROTOCOL ALEXANDRA BLANKENSHIP PHARMACIST Jan 28, 2025 09:00
--- NOTE | 2025-01-28 09:22 | DVHPN2 ---
Progress Note - Dictate Date Seen: Jan 28, 2025 Medical Necessity Reason Pt with a Central, PICC or Fol: No Subjective Mr. Encarnacion is a 54 years old right-handed female with a history of hypertension, overweight, the patient was brought to the [facility] on 01/27/2025 with a chief complaint of speech disturbance I have seen and examined the patient, discussed with her nurse and the medical staff, I have talked to MRI center. She is doing better, alert and fully oriented, speech has recovered, no focal weakness numbness. She has no chest pain or headache She did not receive APAP last night UDS, 01/27/2025: Negative Plasma alcohol, 01/27/2025: Normal Urinalysis, 01/27/2025: Unremarkable CBC, 01/27/25: ok TBI/AST/ALT/AP, 01/27/2025: 03/07/2040 3/160 Glucose, 01/27/2025: 385 Beta hydroxybutyric acid, 01/27/2025: 0.473 Troponin one high sensitivity, 01/27/2025: Fully, 192, 896, 01/28/2025: 7069, 857 TG/HDL/LDL/HDL, 01/27/2025: 295/226/149/33 Vitamin B12, 01/2025: 553 Folic acid, 01/27/2025: 27.54 TSH, 01/27/2025: 0.87 CT head, 01/27/2025: No evidence of acute intracranial hemorrhage, mass effect or hydrocephalus. CT head, neck, 01/27/2025: No evidence of hemodynamically significant intracranial stenosis, proximal occlusion or aneurysm. No evidence of hemodynamically significant cervical stenosis or dissection. MRI head, 01/28/2025:Left parietal lobe and left insula diffusion restriction is consistent with an acute / hyperacute infarct. vital signs Vital Sign Date Time Temp Pulse Resp B/P (MAP) Pulse Ox O2 Delivery O2 Flow Rate FiO2 01/28/25 08:35 83 13 95 Room Air* 0 21 01/28/25 07:00 147/65 (92) 01/28/25 01:29 98.9 98.9 Total Intake and Output 01/27/25 01/27/25 01/28/25 15:00 23:00 07:00 Intake Total 57.7 ml Balance 57.7 ml medications Current Medications Medications Dose Ordered Sig/Cm Route Start Time Stop Time Status Last Admin Dose Admin Dextrose 50 ml PRN PRN IV 01/27/25 20:15 UNV Dextrose 50 ml PRN PRN IV 01/27/25 20:15 Cancel Morphine Sulfate 2 mg Q30M PRN IV 01/27/25 21:30 01/27/25 23:24 2 MG Nitroglycerin 0.4 mg Q5MINP PRN SL 01/27/25 21:30 Diagnostic Test (Pha) 1 strip Q4H 01/28/25 00:00 01/28/25 09:05 1 STRIP Insulin Human Regular Q4H SC 01/28/25 00:00 01/28/25 09:04 3 UNITS Dextrose 50 ml UD PRN IV 01/27/25 21:45 Heparin Sodium/ Dextrose 250 ml @ 8 mls/hr Q24H IV 01/27/25 23:00 01/27/25 23:37 8 MLS/HR Enalaprilat 0.625 mg Q6HP PRN IV 01/27/25 23:00 Labetalol HCl 10 mg Q2HPRN PRN IV 01/27/25 23:00 Lorazepam 1 mg ONCE PRN IV 01/27/25 23:00 Aspirin 300 mg DAILY AK 01/28/25 10:00 Acetaminophen 650 mg Q6HP PRN AK 01/27/25 23:00 Insulin Glargine 15 units HS SC 01/28/25 22:00 Atorvastatin Calcium 80 mg HS PO 01/28/25 22:00 objective General: the patient is well developed and nourished. No acute distress. MENTAL STATUS: Waking alert, a presumed she is oriented fully SPEECH, LANGUAGE, HIGHER CORTICAL FUNCTION: Expressive aphasia, voice is clear. CRANIAL NERVES: Pupils are equal, round and reactive. EOMs full and conjugate. No nystagmus. Facial sensation intact in all three divisions bilaterally. Mandibular strength intact. Facial muscles symmetrical and strength intact. SENSATION: Sensation to touch and pinprick is normal. MOTOR: Normal tone in the upper and lower extremity. Normal muscle bulk. No fasciculations. No abnormal movements or posturing. Muscle strength of the major groups in the extremities is 5/5. REFLEXES: Deep tendon reflexes are symmetrical. No pathological reflexes. CEREBELLAR/COORDINATION: Finger to noseis normal bilaterally. GAIT/STATION: deferred. laboratory and microbiology Laboratory Tests 01/28/25 05:39 Test 01/28/25 05:39 Range/Units Serum Glucose 211 H 74-106 mg/dL Problem List Acute aphasia, to rule out acute stroke Sleep-related breathing disorder Overweight Elevated high sensitivity troponin one/heart attack Assessment/Plan Monitoring Supportive treatment ANGELIQUE Telemetry IV heparin Hold off aspirin Lipitor 20 mg daily Speech pathology evaluation Stabilize blood pressure Glucose control Avoid fever NPO for now except for medications IV fluid Speech pathology evaluation More recommendation per clinical course This medical document was created using an electronic medical record system with [employer] dictation system. Although this document has been carefully reviewed, there may still be some phonetic and typographical errors. These areas are purely typographical due to imperfections of the software programs, and do not reflect any compromise in the patient's medical care. Prognosis poor Plan discussed with: Patient, Other JENNY GARCIA MD Jan 28, 2025 09:22
[2025-01-28] MEDS ORDERED: SODIUM CHLORIDE 0.9% 1,000 ML IV SCH (09:30)
[2025-01-28] MEDS ORDERED: ASPirin 300 MG RECTAL SUPP PR SCH (10:00)
--- NOTE | 2025-01-28 10:29 | DVHINCON2 ---
Date Seen: Jan 28, 2025 Referring Physician Alpesh, resident and Dr. Mancilla Reason for Consultation Elevated trops and possible ANGELIQUE History of Present Illness This is a 54-year-old female patient who presents to the emergency room with chief complaint of expressive aphasia that began at approximately 2:00 p.m. yesterday. The patient states that she was at home and felt as though she can not express what she was really trying to say. She also mentions a headache. The patient states that she kept "saying the wrong things". She decided to come to the emergency room for further evaluation. Initial twelve lead electrocardiogram reveals sinus tachycardia with nonspecific ST segment changes to inferolateral leads. Initial troponin level of 48ng/L with significant up trend and peak level at 1369ng/L. The patient denies any cardiac symptoms such as chest pain, palpitations, or shortness of breath. Significant past medical history includes hypertension, type 2 diabetes mellitus, and obesity. Of note, the patient came in with blood pressures reaching as high as 181/100. A brain MRI reveals a left parietal lobe and left insular diffusion restriction consistent with an acute infarct. Past Medical History Past medical history reviewed. No other significant than mentioned above. Past Surgical History Cholecystectomy Appendectomy Family History Family history reviewed. Social History Denies the use of tobacco, alcohol or illicit drugs. Allergies: Coded Allergies: NO KNOWN ALLERGIES (Unverified , 08/10/14) Home Meds Home medications reviewed. Current Medications Current Medications Medications (Trade) Dose Ordered Sig/Cm Route PRN Reason Start Time Stop Time Status Last Admin Dextrose 50 ml PRN PRN IV Blood Sugar LESS THAN 60 01/27/25 20:15 UNV Dextrose 50 ml PRN PRN IV Blood Sugar LESS THAN 60 01/27/25 20:15 Cancel Diagnostic Test (Pha) (Accu-Chek Comfort Curve T) 1 strip ONCE STAT 01/27/25 20:14 01/27/25 20:17 DC 01/27/25 20:26 Morphine Sulfate 2 mg Q30M PRN IV FOR CHEST PAIN 01/27/25 21:30 01/27/25 23:24 Nitroglycerin (Ntrostat Sublingual) 0.4 mg Q5MINP PRN SL FOR CHEST PAIN 01/27/25 21:30 Diagnostic Test (Pha) (Accu-Chek Comfort Curve T) 1 strip Q4H 01/28/25 00:00 01/28/25 09:05 Insulin Human Regular (InsuLIN R) Q4H SC 01/28/25 00:00 01/28/25 09:04 Dextrose 50 ml UD PRN IV Blood Sugar LESS THAN 60 01/27/25 21:45 Labetalol HCl (Labetalol HCl) 10 mg Q2HPRN PRN IV SBP>160 01/27/25 22:30 01/27/25 22:58 DC Enalaprilat (Vasotec Injection) 0.625 mg Q6HP PRN IV SBP>160 01/27/25 22:30 01/27/25 22:58 DC 01/27/25 22:48 Heparin Sodium/ Dextrose 250 ml @ 8 mls/hr Q24H IV 01/27/25 23:00 01/27/25 23:37 Enalaprilat (Vasotec Injection) 0.625 mg Q6HP PRN IV SBP>=220, DBH >= 110 01/27/25 23:00 Labetalol HCl (Labetalol HCl) 10 mg Q2HPRN PRN IV SBP>= 220 DBP >= 110 01/27/25 23:00 Lorazepam (Ativan Inj) 1 mg ONCE PRN IV MRI 01/27/25 23:00 Aspirin 300 mg DAILY TX 01/28/25 10:00 Atorvastatin Calcium (Lipitor) 20 mg HS PO 01/28/25 22:00 01/28/25 08:37 DC Acetaminophen (Tylenol Suppository) 650 mg Q6HP PRN TX PAIN SCALE 5-10 OR TEMP>100.4 01/27/25 23:00 Insulin Glargine (Lantus) 15 units HS SC 01/28/25 22:00 Atorvastatin Calcium (Lipitor) 80 mg HS PO 01/28/25 22:00 Sodium Chloride 1,000 ml @ 75 mls/hr [id number] IV 01/28/25 09:30 Review of Systems Constitutional: No symptom reported Ears, Nose, & Throat: No symptom reported Eyes: No symptom reported Neurological: Expressive aphasia, headache Pulmonary/Respiratory: No symptoms reported Cardiovascular: No symptom reported Gastrointestinal: No symptom reported Genitourinary: No symptom reported Musculoskeletal: No symptom reported Skin: No symptom reported Psychiatric: No symptom reported Endocrine: No symptom reported Hematologic/Lymphatic: No symptom reported Vital Signs Vital Signs Date Time Temp Pulse Resp B/P (MAP) Pulse Ox O2 Delivery O2 Flow Rate FiO2 01/28/25 08:35 83 13 95 Room Air* 0 21 01/28/25 07:00 147/65 (92) 01/28/25 01:29 98.9 98.9 Physical Exam General Appearance: Cooperative. Well-developed. Well-nourished. No acute distress. Pulmonary/Respiratory: Clear, bilateral breaths sounds. Cardiovascular/Chest: Regular rate and rhythm. Peripheral Pulses: 2+ Radial (R). 2+ Radial (L). 2+ Pedal (R). 2+ Pedal (L) Abdominal Exam: Normal bowel sounds. Ankle Exam: Negative ankle edema Lower extremities: Negative lower extremity edema Neuro/Mental Status: A/OX4, coherent. Expressive aphasia Thoughts/Psych: Normal thought pattern. Appropriate mood and affect. Good judgme nt and insight. Appearance: No acute distress. Skin Exam: Normal inspection. Normal color. Warm and dry. Labs/Diagnostic Data Labs Test 01/28/25 08:41 01/28/25 08:34 01/28/25 05:39 01/27/25 21:58 Range/Units POC Glucose 197 H 70-106 mg/dl White Blood Count 11.3 H 4.4-10.8 10^3/uL Red Blood Count 4.76 4.0-5.20 10^6/uL Hemoglobin 13.8 12.2-16.2 g/dL Hematocrit 41.6 36.0-46.0 % Mean Corpuscular Volume 87.4 80.0-100.0 fL Mean Corpuscular Hemoglobin 28.9 28.0-32.0 pg Mean Corpuscular Hemoglobin Concent 33.1 32.0-36.0 g/dL Red Cell Distribution Width 13.9 11.8-14.3 % Platelet Count 259 140-450 10^3/uL Mean Platelet Volume 7.8 6.9-10.8 fL Neutrophils (%) (Auto) 68.8 37.0-80.0 % Lymphocytes (%) (Auto) 23.6 10.0-50.0 % Monocytes (%) (Auto) 6.2 0.0-12.0 % Eosinophils (%) (Auto) 1.0 0.0-7.0 % Basophils (%) (Auto) 0.4 0.0-2.0 % Neutrophils # (Auto) 7.8 1.6-8.6 10 ^3/uL Lymphocytes # (Auto) 2.7 0.4-5.4 10 ^3/uL Monocytes # (Auto) 0.7 0-1.3 10 ^3/uL Eosinophils # (Auto) 0.1 0-0.8 10 ^3/uL Basophils # (Auto) 0 0-0.2 10 ^3/uL Nucleated Red Blood Cells 0.1 % Prothrombin Time 10.5 9.3-11.8 sec Prothrombin Time INR 0.99 0.9-1.15 Activated Partial Thromboplast Time 49.8 H 24.5-34.5 SEC Sodium Level 135 L 136-145 mmol/L Potassium Level 3.7 3.5-5.1 mmol/L Chloride Level 103 98-107 mmol/L Carbon Dioxide Level 21 20-31 mmol/L Anion Gap 11 5-15 Blood Urea Nitrogen 6 L 9-23 mg/dL Creatinine 0.54 L 0.550-1.02 mg/dL Glomerular Filtration Rate Calc 111 >90 mL/min BUN/Creatinine Ratio 11.1 10.0-20.0 Serum Glucose 211 H 74-106 mg/dL Calcium Level 8.3 L 8.7-10.4 mg/dL Magnesium Level 2.2 1.6-2.6 mg/dL Troponin I High Sensitivity 857 *H </=34 ng/L Erythrocyte Sedimentation Rate 10 0-20 mm/hr Lactic Acid Level 1.5 0.4-2.0 mmol/L Triglycerides Level 295 H < 150 mg/dL Cholesterol Level 226 H < 200 mg/dL LDL Cholesterol 149 H < 100 mg/dL HDL Cholesterol 33 L 40-59 mg/dL Vitamin B12 Level 553 211-911 pg/mL Folic Acid 27.54 >5.38 ng/mL Thyroid Stimulating Hormone (TSH) 0.87 0.55-4.78 uIU/mL Plasma/Serum Blood Alcohol < 3.0 <10 mg/dL Test 01/27/25 20:00 01/27/25 19:59 01/27/25 19:12 01/27/25 19:08 Range/Units Urine Color Light-yellow Yellow Urine Clarity Clear Clear Urine pH 7.0 5.0-9.0 Urine Specific [place] 1.047 H 1.001-1.035 Urine Protein Negative Negative Urine Ketones 1+ H Negative Urine Blood Negative Negative /uL Urine Nitrite Negative Negative Urine Bilirubin Negative Negative Urine Urobilinogen Normal Negative mg/dL Urine Leukocyte Esterase Negative Negative /uL Urine RBC 1 0 - 4 /hpf Urine Microscopic WBC 1 0-5 /HPF Urine Squamous Epithelial Cells Few <5 /hpf Urine Bacteria Few H None Seen /hpf Urine Creatinine 14.74 L 30.0-125.0 mg/dL Urine Protein/Creatinine Ratio 0.56 Urine Glucose 4+ H Normal mg/dL Urine Total Protein 8.3 1-14 mg/dL Urine Test Negative Negative Urine Opiates Screen Neg NEGATIVE Urine Fentanyl Screen Neg NEGATIVE Urine Barbiturates Screen Neg NEGATIVE Urine Phencyclidine Screen Neg NEGATIVE Urine Amphetamines Screen Neg NEGATIVE Urine Benzodiazepines Screen Neg NEGATIVE Urine Cocaine Screen Neg NEGATIVE Urine Cannabinoids Screen Neg NEGATIVE Creatine Kinase 90 34-145 U/L C-Reactive Protein High Sensitivity 0.56 <1.0 mg/dL Hemoglobin A1c 12.0 H <5.7 % A1C Total Bilirubin 0.7 0.2-1.0 mg/dL Aspartate Amino Transferase (AST) 27 <34 U/L Alanine Aminotransferase (ALT) 43 H 7-40 U/L Alkaline Phosphatase 160 H 46-116 U/L B-Type Natriuretic Peptide 9.26 0-100 pg/mL Total Protein 6.6 5.7-8.2 g/dL Albumin 4.2 3.2-4.8 g/dL Beta-Hydroxybutyric Acid 0.473 H < 0.4 mmol/L Prolactin 18.47 2.8-29.2 ng/mL Blood Gas Specimen Type Arterial Blood Gas Sample Site Left radial Blood Gas Patient Temperature 37.0 Arterial Blood Date Drawn [id number] Arterial Blood pH 7.499 H 7.350-7.450 Arterial Blood Partial Pressure CO2 28.7 L 32.0-45.0 mmHg Arterial Blood Partial Pressure O2 76.7 L 83.0-108.0 mmHg Arterial Blood HCO3 21.8 21.0-28.0 mmol/L Arterial Blood Oxygen Saturation 96.0 94.0-98.0 % Arterial Blood Base Excess -0.1 -2.0-3.0 mmol/L Arterial Blood Oxyhemoglobin 94.5 94.0-98.0 % Arterial Blood Carboxyhemoglobin 1.0 0.5-1.5 % Arterial Blood Methemoglobin 0.6 0.0-1.5 % Donnie Test Yes Blood Gas Total Hemoglobin 14.50 12.0-16.0 g/dL Blood Gas Modality Room air FiO2 % 21.0 Blood Gas Critical Value Read Back Yes Assessment Acute CVA, rule out cardiac etiology Hypertensive emergency NSTEMI, likely type II secondary to above Rule out cardiac arrhythmia Dyslipidemia, newly diagnosed Type 2 diabetes mellitus, uncontrolled (12.0%) Plan/Recommendation We will continue with the following plan/recommendations (Dr. Hall): Case discussed with . Elevated troponin levels likely demand mismatch ischemia in the setting of hypertensive emergency with acute CVA. The patient denies any cardiac symptoms. We will recommend to aggressively control blood pressure, allow for permissive hypertension if deemed necessary by Neurology. Continue lipid-lowering agent. Neurology team has consulted Cardiology for possible transesophageal echocardiogram to rule out cardiac etiology of CVA. Procedure discussed with the patient full detail. Patient is agreeable to undergo transesophageal echocardiogram. We will schedule the patient at first availability on 01/29/2025. In the meantime, continue with close cardiac surveillance and notify cardiology team for any ECG changes. Thank you for allowing us to care for this patient. Please call with any questions or concerns. Critical care time spent: 44 minutes This medical document was created using an electronic medical record system with voice recognition software and computerized dictation system. Although this document has been carefully reviewed, there might still be some phonetic and typographical errors. Occasional wrong-word or ``sound-alike substitutions may have occurred due to the inherent limitations of voice recognition software. These areas are purely typographical due to imperfections of the software programs and do not reflect any compromise in the patient's medical care. Please read the chart carefully and recognize, using context, where these substitutions have occurred. Plan discussed with: Patient NYHA Physical activity limitations: NA Date of Service: Jan 28, 2025 Billing Provider: OBED ANN Cardiology Common Codes: [id number] INP/OBS CARE (High) Cardiology Consultation Codes: [id number] CONSULT <45MIN OBED ANN Jan 28, 2025 10:29
--- NOTE | 2025-01-28 11:22 | DVHPNRES ---
Progress Note Date Seen: Jan 28, 2025 Resident Creating Document: CHRIS LYN RESIDENT Medical Necessity Reason Pt with a Central, PICC or Fol: No Subjective Review of Systems Ms. Encarnacion is a 54-year-old male with diabetes mellitus type 2 likely not taking metformin, hypertension on losartan who presented to the ER with symptoms of dysarthria. Patient appears frustrated given the inability to speak fluently. Daughter at bedside, reports that her symptoms started around 2:00 p.m. on 01/27 when she became a fluent, and could not convince her speech and was unable to speak what she wanted to. At the time her blood pressure systolic was 190 mmHg. Patient does not routinely monitor blood pressure. Per family, patient did not have any seizure-like activity, no loss of consciousness, no motor weakness, dysphagia or facial weakness. On my evaluation, patient appears frustrated, can not tell me where she is or what day or month it is. Patient can write her name, draw clock normally. Past medical history: Diabetes mellitus type 2, hypotension Surgical history: Cholecystectomy 20 years ago heme Medication history: Losartan, metformin ? Noncompliant Social history: Lives with , denies smoking/drinking/drug use Patient seen and examined at bedside. MRI shows acute stroke, continuing heparin and aspirin. Neurology on hold. Objective vital signs Vital Sign Date Time Temp Pulse Resp B/P (MAP) Pulse Ox O2 Delivery O2 Flow Rate FiO2 01/28/25 08:35 83 13 95 Room Air* 0 21 01/28/25 07:00 147/65 (92) 01/28/25 01:29 98.9 98.9 Total Intake and Output 01/27/25 01/27/25 01/28/25 15:00 23:00 07:00 Intake Total 57.7 ml Balance 57.7 ml medications Current Medications Medications Dose Ordered Sig/Cm Route Start Time Stop Time Status Last Admin Dose Admin Dextrose 50 ml PRN PRN IV 01/27/25 20:15 UNV Dextrose 50 ml PRN PRN IV 01/27/25 20:15 Cancel Morphine Sulfate 2 mg Q30M PRN IV 01/27/25 21:30 01/27/25 23:24 2 MG Nitroglycerin 0.4 mg Q5MINP PRN SL 01/27/25 21:30 Diagnostic Test (Pha) 1 strip Q4H 01/28/25 00:00 01/28/25 09:05 1 STRIP Insulin Human Regular Q4H SC 01/28/25 00:00 01/28/25 09:04 3 UNITS Dextrose 50 ml UD PRN IV 01/27/25 21:45 Heparin Sodium/ Dextrose 250 ml @ 8 mls/hr Q24H IV 01/27/25 23:00 01/27/25 23:37 8 MLS/HR Enalaprilat 0.625 mg Q6HP PRN IV 01/27/25 23:00 Labetalol HCl 10 mg Q2HPRN PRN IV 01/27/25 23:00 Lorazepam 1 mg ONCE PRN IV 01/27/25 23:00 Insulin Glargine 15 units HS SC 01/28/25 22:00 Atorvastatin Calcium 80 mg HS PO 01/28/25 22:00 Aspirin 81 mg DAILY PO 01/29/25 10:00 Examination Patient lying in bed, appearing frustrated General: Well-built, no pallor, mucosae are moist Cardiovascular: Regular S1 and S2. No murmurs, gallops or rubs. No JVD elevation. No pedal edema Respiratory: Normal B/L air entry on room air. Clear lung sounds on auscultation Abdomen: Soft, nontender, nondistended, normoactive bowel sounds, no rebound tenderness, no organomegaly, no masses Genitourinary: Deferred MSK/skin: Mobilizes 4 limbs. Skin is dry and warm Neurological: No motor, no sensitive deficits, expressive aphasia, Pupils are isocoric and reactive. Facial muscles symmetrical and strength intact. Facial sensation intact in V1/V2/V3 Patient can write her name, can draw clock. [id number] testing unremarkable laboratory and microbiology Laboratory Tests 01/28/25 05:39 Test 01/28/25 05:39 Range/Units Serum Glucose 211 H 74-106 mg/dL Labs and/or images reviewed: Labs reviewed by me, Image(s) reviewed by me Problem List/Assessment/Plan Problem List/Assessment/Plan Acute stroke-left parietal lobe Expressive aphasia Hypertensive emergency Uncontrolled hypertension Dyslipidemia Head CT ruled out acute hemorrhage, head and neck CT angio unremarkable for hemodynamically significant stenosis, occlusion, aneurysm or dissection. MRI brain showed Left parietal lobe and left insula diffusion restriction is consistent with an acute / hyperacute infarct. Neurology consultation-aspirin 325 loading dose follow up by aspirin 81 mg daily, atorvastatin 80 mg daily, IV heparin drip Neurologist recommended ANGELIQUE-cardiology on board NPO except medications, speech therapy Maintain blood pressure above 160 mmHg systolic NSTEMI type 1 versus type 2 Hypertensive emergency Rule out silent GA Troponins up trending 48, 192, 896 Cardiology consulted EKG shows sinus tachycardia Continue aspirin and atorvastatin Renal artery ultrasound unremarkable Uncontrolled type 2 diabetes mellitus-hemoglobin A1c 12 Lantus ISS Urine protein/creatinine 0.5 Likely sleep apnea CPAP at nighttime Heparin drip NPO except medications Pending speech therapy PT eval Plan discussed with patient, daughters at bedside in which all questions have been answered+ Goals of care discussed with patient for more than 20 minutes, full code status Case discussed with Dr. Klein Plan discussed with: Patient, Daughter My Orders My Orders Orders - CHRIS LYN Procedure Category Date Status Time Atorvastatin (Lipitor) PHA 01/28/25 In Process 22:00 Vitamin D, 25-Hydroxy LAB 01/29/25 Verified 04:00 Aspirin Tablet PHA 01/29/25 In Process 10:00 Date of Service: Jan 28, 2025 Billing Provider: MEGHANA WILSON MD Common Visit Codes: [id number] INP/OBS CARE(HIGH) CHRIS LYN Jan 28, 2025 11:22 MEGHANA WILSON MD Feb 01, 2025 10:00
[2025-01-28 12:08] LABS: INR 0.97 (0.9-1.15); Partial Thromboplastin Time 32.2 SEC (24.5-34.5); Prothrombin Time 10.3 sec (9.3-11.8)
[2025-01-28 19:45] VITALS: PULSE 83; RESP 15; O2SAT 97
[2025-01-28] MEDS ORDERED: ATORVASTATIN 20 MG TAB PO SCH (22:00)
[2025-01-28] MEDS: ATORVASTATIN 20 MG TAB PO SCH (22:00)
[2025-01-29 06:42] LABS: Basophils # (auto) 0.1 10 ^3/uL (0-0.2); Basophils % (auto) 0.6 % (0.0-2.0); Eosinophils # (auto) 0.2 10 ^3/uL (0-0.8); Eosinophils % (auto) 2.7 % (0.0-7.0); Hematocrit 42.2 % (36.0-46.0); Hemoglobin 14.3 g/dL (12.2-16.2); Lymphocytes # (auto) 2.5 10 ^3/uL (0.4-5.4); Lymphocytes % (auto) 28.1 % (10.0-50.0); Mean Corpuscular Hemoglobin 29.2 pg (28.0-32.0); Mean Corpuscular Volume 85.9 fL (80.0-100.0); Monocytes # (auto) 0.6 10 ^3/uL (0-1.3); Monocytes % (auto) 6.3 % (0.0-12.0); Neutrophils # (auto) 5.6 10 ^3/uL (1.6-8.6); Neutrophils % (auto) 62.3 % (37.0-80.0); Platelet Count (auto) 261 10^3/uL (140-450); Red Blood Cells 4.91 10^6/uL (4.0-5.20); Red Cell Distribution Width 13.8 % (11.8-14.3); White Blood Cell 8.9 10^3/uL (4.4-10.8)
[2025-01-29 06:52] LABS: Chloride 106 mmol/L (98-107); Potassium 3.5 mmol/L (3.5-5.1); Sodium 139 mmol/L (136-145)
[2025-01-29 06:53] LABS: Anion Gap 11 (5-15); Calcium 9.2 mg/dL (8.7-10.4); Carbon Dioxide 22 mmol/L (20-31)
[2025-01-29 06:58] LABS: BUN/Creatinine Ratio 16.7 (10.0-20.0)
[2025-01-29 07:04] LABS: Blood Urea Nitrogen 9 mg/dL (9-23); Glucose 148 mg/dL (74-106)
[2025-01-29 08:00] VITALS: PULSE 69; RESP 13; O2SAT 98
[2025-01-29] MEDS ORDERED: ASPirin 81 mg TAB PO SCH (10:00)
[2025-01-29 13:35] VITALS: BP 158/97; PULSE 79; RESP 16; TEMP 97.4
[2025-01-29 13:39] VITALS: BP 158/83; PULSE 75; PULSE 83; RESP 16; TEMP 97.8; O2SAT 95
[2025-01-29] MEDS: POTASSIUM EFFERVESENT TAB 25 MEQ PO ONE (14:45)
[2025-01-29] MEDS: MIDAZOLAM HCL 2MG/2ML 2ml VIAL (1mg/ml) IV ONE (15:30)
[2025-01-29] MEDS: fentaNYL CITRATE 100 MCG/2 ML VL IV ONE (15:30)
[2025-01-29] MEDS: LIDOCAINE VISCOUS 2% 15ML UD PO ONE (15:30)
[2025-01-29] MEDS: MIDAZOLAM HCL 2MG/2ML 2ml VIAL (1mg/ml) ONE (15:42)
[2025-01-29] MEDS: hydrALAZINE HCL 20 MG/ML VL ONE (15:54)
--- NOTE | 2025-01-29 16:16 | DVHPNRES ---
Progress Note Date Seen: Jan 29, 2025 Resident Creating Document: CHRIS LYN RESIDENT Medical Necessity Reason Pt with a Central, PICC or Fol: No Subjective Review of Systems Ms. Encarnacion is a 54-year-old male with diabetes mellitus type 2 likely not taking metformin, hypertension on losartan who presented to the ER with symptoms of dysarthria. Patient appears frustrated given the inability to speak fluently. Daughter at bedside, reports that her symptoms started around 2:00 p.m. on 01/27 when she became a fluent, and could not convince her speech and was unable to speak what she wanted to. At the time her blood pressure systolic was 190 mmHg. Patient does not routinely monitor blood pressure. Per family, patient did not have any seizure-like activity, no loss of consciousness, no motor weakness, dysphagia or facial weakness. On my evaluation, patient appears frustrated, can not tell me where she is or what day or month it is. Patient can write her name, draw clock normally. Past medical history: Diabetes mellitus type 2, hypotension Surgical history: Cholecystectomy 20 years ago heme Medication history: Losartan, metformin ? Noncompliant Social history: Lives with , denies smoking/drinking/drug use 01/28 - Patient seen and examined at bedside. MRI shows acute stroke, continuing heparin and aspirin. 01/29-patient seen and examined. Started aspirin and Plavix. Undergoing ANGELIQUE Objective vital signs Vital Sign Date Time Temp Pulse Resp B/P (MAP) Pulse Ox O2 Delivery O2 Flow Rate FiO2 01/29/25 13:39 97.8 75 16 158/83 (108) 95 97.8 01/29/25 13:39 Room Air* 0 21 Total Intake and Output 01/28/25 01/28/25 01/29/25 15:00 23:00 07:00 Intake Total 8 ml Balance 8 ml medications Current Medications Medications Dose Ordered Sig/Cm Route Start Time Stop Time Status Last Admin Dose Admin Dextrose 50 ml PRN PRN IV 01/27/25 20:15 UNV Dextrose 50 ml PRN PRN IV 01/27/25 20:15 Cancel Morphine Sulfate 2 mg Q30M PRN IV 01/27/25 21:30 01/27/25 23:24 2 MG Nitroglycerin 0.4 mg Q5MINP PRN SL 01/27/25 21:30 Diagnostic Test (Pha) 1 strip Q4H 01/28/25 00:00 01/29/25 12:00 1 STRIP Insulin Human Regular Q4H SC 01/28/25 00:00 01/29/25 08:24 2 UNITS Dextrose 50 ml UD PRN IV 01/27/25 21:45 Enalaprilat 0.625 mg Q6HP PRN IV 01/27/25 23:00 Labetalol HCl 10 mg Q2HPRN PRN IV 01/27/25 23:00 Lorazepam 1 mg ONCE PRN IV 01/27/25 23:00 Insulin Glargine 15 units HS SC 01/28/25 22:00 01/28/25 00:00 15 UNITS Atorvastatin Calcium 80 mg HS PO 01/28/25 22:00 01/28/25 22:00 80 MG Ergocalciferol 50,000 unit Q7D PO 01/29/25 14:45 Examination Patient lying in bed, appearing frustrated General: Well-built, no pallor, mucosae are moist Cardiovascular: Regular S1 and S2. No murmurs, gallops or rubs. No JVD elevation. No pedal edema Respiratory: Normal B/L air entry on room air. Clear lung sounds on auscultation Abdomen: Soft, nontender, nondistended, normoactive bowel sounds, no rebound tenderness, no organomegaly, no masses Genitourinary: Deferred MSK/skin: Mobilizes 4 limbs. Skin is dry and warm Neurological: No motor, no sensitive deficits, expressive aphasia, Pupils are isocoric and reactive. Facial muscles symmetrical and strength intact. Facial sensation intact in V1/V2/V3 Patient can write her name, can draw clock. [id number] testing unremarkable laboratory and microbiology Laboratory Tests 01/29/25 05:47 Test 01/29/25 05:47 Range/Units Serum Glucose 148 H 74-106 mg/dL Labs and/or images reviewed: Labs reviewed by me, Image(s) reviewed by me Problem List/Assessment/Plan Problem List/Assessment/Plan Acute stroke-left parietal lobe Expressive aphasia Hypertensive emergency Uncontrolled hypertension Dyslipidemia Head CT ruled out acute hemorrhage, head and neck CT angio unremarkable for hemodynamically significant stenosis, occlusion, aneurysm or dissection. MRI brain showed Left parietal lobe and left insula diffusion restriction is consistent with an acute / hyperacute infarct. Neurology consultation-aspirin 325 loading dose follow up by aspirin 81 mg daily, Plavix, atorvastatin 80 mg daily, IV heparin drip Neurologist recommended ANGELIQUE-cardiology on board Maintain blood pressure above 160 mmHg systolic NSTEMI type 1 versus type 2 Hypertensive emergency Rule out silent [place] Troponins up trending 48, 192, 896 Cardiology consulted EKG shows sinus tachycardia Continue aspirin and atorvastatin Renal artery ultrasound unremarkable Uncontrolled type 2 diabetes mellitus-hemoglobin A1c 12 Lantus ISS Urine protein/creatinine 0.5 Likely sleep apnea CPAP at nighttime Discontinued heparin drip PT eval Plan discussed with patient, daughters at bedside in which all questions have been answered+ Goals of care discussed with patient for more than 20 minutes, full code status Case discussed with Dr. Klein Plan discussed with: Patient My Orders My Orders Orders - CHRIS LYN Procedure Category Date Status Time Pt Request For Service PT 01/28/25 Logged 16:57 Ergocalciferol PHA 01/29/25 In Process (Vitamin D 50,000 14:45 Date of Service: Jan 29, 2025 Billing Provider: MEGHANA WILSON MD Common Visit Codes: [id number] INP/OBS CARE(HIGH) CHRIS LYN Jan 29, 2025 16:16 MEGHANA WILSON MD Feb 01, 2025 10:09
[2025-01-29 17:56] VITALS: BP 141/58; PULSE 87; RESP 18; TEMP 96.6; O2SAT 98
[2025-01-29] MEDS: ERGOCALCIFEROL 50,000 UNIT(1.25MG) CAP PO SCH (18:35)
[2025-01-29] MEDS: ASPirin 81 mg TAB PO ONE (18:36)
[2025-01-29] MEDS: CLOPIDOGREL BISULFATE 75 MG TAB PO ONE (18:36)
--- NOTE | 2025-01-29 19:34 | DVHOP2 ---
Operative Report - 2 Report Details Date: 01/29/25 Preop Diagnosis: TIA Postop Diagnosis: Normal transesophageal echocardiogram Surgeon: Joshua Hall MD Anesthesiologist: Conscious sedation Anesthesia: Mac Consent: The patient was informed of the risks and benefits of the procedure. These include but are not limited to complications of anesthesia, postoperative infection, incomplete relief of symptoms, recurrence of symptoms, damage to blood vessels, nerves and tendons, deep venous thrombosis, pulmonary embolism and possible need for repeat surgery in the future. Complications: No complications Findings: Normal transesophageal echocardiogram Indications for Surgery: TIA Name of Procedure Performed Transesophageal echocardiogram Procedure Details Procedure Details: Prior full informed consent obtained the patient was prepped and draped in usual fashion placed in left lateral and semi-Fabian position. Transesophageal probe was placed subsequent to giving the patient lidocaine gargle and fentanyl and Versed intravenously which was ordered by me and monitored the patient throughout the procedure. Standard views were obtained Conclusions: Technically good study sinus rhythm. Normal chamber sizes. Valves appear to be structurally normal. Left ventricular systolic performance is preserved at 65% with normal right ventricular function. Doppler reveals kegx-ly-wwfsyter aortic insufficiency with mild tricuspid and mitral insufficiency. There is no pericardial effusion. No intracardiac masses thrombi and/or vegetations discernible. The appendage was clean without thrombi. No intra-atrial shunts or defects were noted. Condition Good Disposition Still a Patient Date of Service: Jan 29, 2025 Billing Provider: JOSHUA HALL Sr., MD Cardiology Common Codes: [id number] INP/OBS CARE (High) Cardiology Procedure Codes: 01637-HIG W/IMG DOC INCL PROB ACQ JOSHUA HALL Sr., MD Jan 29, 2025 19:34
[2025-01-29 20:00] VITALS: PULSE 100
[2025-01-29 21:00] VITALS: BP 155/70; PULSE 102; RESP 17; TEMP 98.4; O2SAT 98
[2025-01-30] VITALS (8 sets, daily range): BP systolic 140–163; BP diastolic 67–90; PULSE 78–116; RESP 17–21; TEMP 97.6–99.2; O2SAT 96–100
[2025-01-30 06:35] LABS: Basophils # (auto) 0 10 ^3/uL (0-0.2); Basophils % (auto) 0.5 % (0.0-2.0); Eosinophils # (auto) 0.3 10 ^3/uL (0-0.8); Hemoglobin 14.4 g/dL (12.2-16.2); Lymphocytes # (auto) 2.5 10 ^3/uL (0.4-5.4); Lymphocytes % (auto) 30.3 % (10.0-50.0); Mean Corpuscular Hemoglobin 29.4 pg (28.0-32.0); Mean Corpuscular Hgb Conc. 34.3 g/dL (32.0-36.0); Mean Corpuscular Volume 85.7 fL (80.0-100.0); Monocytes # (auto) 0.6 10 ^3/uL (0-1.3); Monocytes % (auto) 7.6 % (0.0-12.0); Neutrophils # (auto) 4.7 10 ^3/uL (1.6-8.6); Neutrophils % (auto) 57.6 % (37.0-80.0); Platelet Count (auto) 268 10^3/uL (140-450); Red Cell Distribution Width 13.5 % (11.8-14.3); White Blood Cell 8.1 10^3/uL (4.4-10.8)
[2025-01-30 06:39] LABS: Chloride 107 mmol/L (98-107); Sodium 140 mmol/L (136-145)
[2025-01-30 06:40] LABS: Anion Gap 12 (5-15); Carbon Dioxide 21 mmol/L (20-31)
[2025-01-30 06:41] LABS: Calcium 9.6 mg/dL (8.7-10.4)
[2025-01-30 06:46] LABS: BUN/Creatinine Ratio 27.3 (10.0-20.0); Blood Urea Nitrogen 15 mg/dL (9-23)
[2025-01-30 06:55] LABS: Glucose 126 mg/dL (74-106); Potassium 3.3 mmol/L (3.5-5.1)
[2025-01-30] MEDS: CLOPIDOGREL BISULFATE 75 MG TAB PO SCH (08:58)
[2025-01-30] MEDS: ASPirin 81 mg TAB PO SCH (08:58)
[2025-01-30] MEDS: POTASSIUM EFFERVESENT TAB 25 MEQ PO ONE (11:38)
--- NOTE | 2025-01-30 14:43 | DVHPNRES ---
Progress Note Date Seen: Jan 30, 2025 Resident Creating Document: BARON DUNBAR RESIDENT Medical Necessity Reason Pt with a Central, PICC or Fol: No Subjective Review of Systems patient seen and examined. Started aspirin and Plavix. ANGELIQUE: Relatively normal. Objective vital signs Vital Sign Date Time Temp Pulse Resp B/P (MAP) Pulse Ox O2 Delivery O2 Flow Rate FiO2 01/30/25 13:00 99.2 96 20 163/85 (111) 99 99.2 01/30/25 08:00 Room Air* 0 21 Total Intake and Output 01/29/25 01/29/25 01/30/25 15:00 23:00 07:00 Intake Total 0 ml 625 ml Balance 0 ml 625 ml medications Current Medications Medications Dose Ordered Sig/Cm Route Start Time Stop Time Status Last Admin Dose Admin Dextrose 50 ml PRN PRN IV 01/27/25 20:15 UNV Dextrose 50 ml PRN PRN IV 01/27/25 20:15 Cancel Morphine Sulfate 2 mg Q30M PRN IV 01/27/25 21:30 01/27/25 23:24 2 MG Nitroglycerin 0.4 mg Q5MINP PRN SL 01/27/25 21:30 Diagnostic Test (Pha) 1 strip Q4H 01/28/25 00:00 01/30/25 11:59 1 STRIP Insulin Human Regular Q4H SC 01/28/25 00:00 01/30/25 11:59 4 UNITS Dextrose 50 ml UD PRN IV 01/27/25 21:45 Enalaprilat 0.625 mg Q6HP PRN IV 01/27/25 23:00 Labetalol HCl 10 mg Q2HPRN PRN IV 01/27/25 23:00 Lorazepam 1 mg ONCE PRN IV 01/27/25 23:00 Insulin Glargine 15 units HS SC 01/28/25 22:00 01/29/25 21:26 15 UNITS Atorvastatin Calcium 80 mg HS PO 01/28/25 22:00 01/29/25 21:22 80 MG Ergocalciferol 50,000 unit Q7D PO 01/29/25 14:45 01/29/25 18:35 50,000 UNIT Aspirin 81 mg DAILY PO 01/30/25 10:00 01/30/25 08:58 81 MG Clopidogrel Bisulfate 75 mg DAILY PO 01/30/25 10:00 01/30/25 08:58 75 MG Examination Patient lying in bed, appearing frustrated General: Well-built, no pallor, mucosae are moist Cardiovascular: Regular S1 and S2. No murmurs, gallops or rubs. No JVD elevation. No pedal edema Respiratory: Normal B/L air entry on room air. Clear lung sounds on auscultation Abdomen: Soft, nontender, nondistended, normoactive bowel sounds, no rebound tenderness, no organomegaly, no masses Genitourinary: Deferred MSK/skin: Mobilizes 4 limbs. Skin is dry and warm Neurological: No motor, no sensitive deficits, expressive aphasia, Pupils are isocoric and reactive. Facial muscles symmetrical and strength intact. Facial sensation intact in V1/V2/V3 Patient can write her name, can draw clock. Cykmhb-om-bggc testing unremarkable. laboratory and microbiology Laboratory Tests 01/30/25 05:57 Test 01/30/25 05:57 Range/Units Serum Glucose 126 H 74-106 mg/dL Problem List/Assessment/Plan Problem List/Assessment/Plan Acute stroke-left parietal lobe Expressive aphasia Hypertensive emergency Uncontrolled hypertension Dyslipidemia Head CT ruled out acute hemorrhage, head and neck CT angio unremarkable for hemodynamically significant stenosis, occlusion, aneurysm or dissection. MRI brain showed Left parietal lobe and left insula diffusion restriction is consistent with an acute / hyperacute infarct. Neurology consultation-aspirin 325 loading dose follow up by aspirin 81 mg daily, Plavix, atorvastatin 80 mg daily, IV heparin drip Neurologist recommended ANGELIQUE-cardiology on board Maintain blood pressure above 160 mmHg systolic NSTEMI type 1 versus type 2 Hypertensive emergency Rule out silent [place] Troponins up trending 48, 192, 896 Cardiology consulted EKG shows sinus tachycardia Continue aspirin and atorvastatin Renal artery ultrasound unremarkable ANGELIQUE: Relatively normal Uncontrolled type 2 diabetes mellitus-hemoglobin A1c 12 Lantus ISS Urine protein/creatinine 0.5 Likely sleep apnea CPAP at nighttime Discontinued heparin drip PT eval Plan discussed with patient, daughters at bedside in which all questions have been answered+ Goals of care discussed with patient for 18 minutes, full code status Case discussed with Dr. Duran Plan discussed with: Patient Date of Service: Jan 30, 2025 Billing Provider: TONEY DURAN MD Common Visit Codes: [id number] INP/OBS CARE(HIGH) BARON DUNBAR RESIDENT Jan 30, 2025 14:43 TONEY DURAN MD Feb 01, 2025 11:44
--- NOTE | 2025-01-30 19:36 | DVHPN2 ---
Consult Progress Note Subjective Patient reports: No new complaints Objective vital signs Vital Sign Date Time Temp Pulse Resp B/P (MAP) Pulse Ox O2 Delivery O2 Flow Rate FiO2 01/30/25 17:27 97.6 103 21 162/80 (107) 100 97.6 01/30/25 08:00 Room Air* 0 21 Total Intake and Output 01/29/25 01/29/25 01/30/25 15:00 23:00 07:00 Intake Total 0 ml 625 ml Balance 0 ml 625 ml medications Current Medications Medications Dose Ordered Sig/Cm Route Start Time Stop Time Status Last Admin Dose Admin Dextrose 50 ml PRN PRN IV 01/27/25 20:15 UNV Dextrose 50 ml PRN PRN IV 01/27/25 20:15 Cancel Morphine Sulfate 2 mg Q30M PRN IV 01/27/25 21:30 01/27/25 23:24 2 MG Nitroglycerin 0.4 mg Q5MINP PRN SL 01/27/25 21:30 Diagnostic Test (Pha) 1 strip Q4H 01/28/25 00:00 01/30/25 16:00 1 STRIP Insulin Human Regular Q4H SC 01/28/25 00:00 01/30/25 16:00 4 UNITS Dextrose 50 ml UD PRN IV 01/27/25 21:45 Enalaprilat 0.625 mg Q6HP PRN IV 01/27/25 23:00 Labetalol HCl 10 mg Q2HPRN PRN IV 01/27/25 23:00 Lorazepam 1 mg ONCE PRN IV 01/27/25 23:00 Insulin Glargine 15 units HS SC 01/28/25 22:00 01/29/25 21:26 15 UNITS Atorvastatin Calcium 80 mg HS PO 01/28/25 22:00 01/29/25 21:22 80 MG Ergocalciferol 50,000 unit Q7D PO 01/29/25 14:45 01/29/25 18:35 50,000 UNIT Aspirin 81 mg DAILY PO 01/30/25 10:00 01/30/25 08:58 81 MG Clopidogrel Bisulfate 75 mg DAILY PO 01/30/25 10:00 01/30/25 08:58 75 MG Examination: CVS:Normal laboratory and microbiology Laboratory Tests 01/30/25 05:57 Test 01/30/25 05:57 Range/Units Serum Glucose 126 H 74-106 mg/dL Problem List/Assessment/Plan Problem List/Assessment/Plan Acute CVA, rule out cardiac etiology Hypertensive emergency NSTEMI, likely type II secondary to above Rule out cardiac arrhythmia Dyslipidemia, newly diagnosed Type 2 diabetes mellitus, uncontrolled (12.0%) Plan/Recommendation We will continue with the following plan/recommendations (Dr. Hall): 01/30/25 - negative ANGELIQUE. Cardiology will sign off Case discussed with . Elevated troponin levels likely demand mismatch ischemia in the setting of hypertensive emergency with acute CVA. The patient denies any cardiac symptoms. We will recommend to aggressively control blood pressure, allow for permissive hypertension if deemed necessary by Neurology. Continue lipid-lowering agent. Neurology team has consulted Cardiology for possible transesophageal echocardiogram to rule out cardiac etiology of CVA. Procedure discussed with the patient full detail. Patient is agreeable to undergo transesophageal echocardiogram. We will schedule the patient at first availability on 01/29/2025. In the meantime, continue with close cardiac surveillance and notify cardiology team for any ECG changes. Thank you for allowing us to care for this patient. Please call with any questions or concerns. Critical care time spent: 44 minutes This medical document was created using an electronic medical record system with voice recognition software and computerized dictation system. Although this document has been carefully reviewed, there might still be some phonetic and typographical errors. Occasional wrong-word or ``sound-alike substitutions may have occurred due to the inherent limitations of voice recognition software. These areas are purely typographical due to imperfections of the software programs and do not reflect any compromise in the patient's medical care. Please read the chart carefully and recognize, using context, where these substitutions have occurred. Plan discussed with: Patient Plan discussed with: Patient Dietary Evaluation Review Recommendations by RD: Dietary education by RD Comments: 1) Encourage optimal PO intake 2) Advance to 60g CCHO diet when medically feasible, pending ST approval 3) Refer to outpatient RD for weight management 4) Follow[facility]up [facility]ology 5) Continue to monitor I&O, labs, and skin integrity Expected Outcomes/Goals: 1) appetite and labs to improve 2) diet to advance 3) f/u in 3-5 days Date of Service: Jan 30, 2025 Billing Provider: JOSHUA HALL Sr., MD Common Visit Codes: CONSULT ONLY Consultation Codes: [id number] CONSULT <45MIN SAMSON [facility] Jan 30, 2025 19:36
[2025-01-31] VITALS (12 sets, daily range): BP systolic 133–171; BP diastolic 73–89; PULSE 89–109; RESP 18–20; TEMP 97.6–99.2; O2SAT 96–98
[2025-01-31 06:42] LABS: Basophils # (auto) 0 10 ^3/uL (0-0.2); Basophils % (auto) 0.2 % (0.0-2.0); Eosinophils # (auto) 0.2 10 ^3/uL (0-0.8); Eosinophils % (auto) 1.3 % (0.0-7.0); Hematocrit 46.3 % (36.0-46.0); Hemoglobin 15.8 g/dL (12.2-16.2); Lymphocytes # (auto) 1.8 10 ^3/uL (0.4-5.4); Lymphocytes % (auto) 12.5 % (10.0-50.0); Mean Corpuscular Hemoglobin 29.5 pg (28.0-32.0); Mean Corpuscular Hgb Conc. 34.2 g/dL (32.0-36.0); Mean Corpuscular Volume 86.3 fL (80.0-100.0); Monocytes # (auto) 0.8 10 ^3/uL (0-1.3); Monocytes % (auto) 5.7 % (0.0-12.0); Neutrophils # (auto) 11.4 10 ^3/uL (1.6-8.6); Neutrophils % (auto) 80.3 % (37.0-80.0); Platelet Count (auto) 282 10^3/uL (140-450); Red Blood Cells 5.37 10^6/uL (4.0-5.20); Red Cell Distribution Width 13.6 % (11.8-14.3); White Blood Cell 14.2 10^3/uL (4.4-10.8)
[2025-01-31 06:49] LABS: Chloride 106 mmol/L (98-107); Potassium 3.7 mmol/L (3.5-5.1); Sodium 139 mmol/L (136-145)
[2025-01-31 06:50] LABS: Anion Gap 13 (5-15); Carbon Dioxide 20 mmol/L (20-31)
[2025-01-31 06:51] LABS: Calcium 10.4 mg/dL (8.7-10.4)
[2025-01-31 06:55] LABS: BUN/Creatinine Ratio 19.4 (10.0-20.0); Blood Urea Nitrogen 14 mg/dL (9-23)
[2025-01-31 06:56] LABS: Glucose 167 mg/dL (74-106)
[2025-01-31] MEDS: LOSARTAN POTASSIUM 50 MG TAB PO ONE (12:04)
[2025-01-31] MEDS ORDERED: LOSA-534 PO (14:14)
[2025-01-31] MEDS ORDERED: CLOP75TA70 PO (14:14)
[2025-01-31] MEDS ORDERED: ATOR40TA52 PO (14:14)
[2025-01-31] MEDS ORDERED: ASPI-325 PO (14:14)
[2025-01-31] MEDS ORDERED: CHOL500021 OR (14:15)
[2025-01-31 14:57] LABS: Basophils # (auto) 0 10 ^3/uL (0-0.2); Basophils % (auto) 0.4 % (0.0-2.0); Eosinophils # (auto) 0.2 10 ^3/uL (0-0.8); Eosinophils % (auto) 2.3 % (0.0-7.0); Hematocrit 48.5 % (36.0-46.0); Hemoglobin 16.4 g/dL (12.2-16.2); Lymphocytes # (auto) 2.3 10 ^3/uL (0.4-5.4); Lymphocytes % (auto) 22.4 % (10.0-50.0); Mean Corpuscular Hemoglobin 29.4 pg (28.0-32.0); Mean Corpuscular Hgb Conc. 33.7 g/dL (32.0-36.0); Mean Corpuscular Volume 87.3 fL (80.0-100.0); Monocytes # (auto) 0.6 10 ^3/uL (0-1.3); Monocytes % (auto) 6.3 % (0.0-12.0); Neutrophils % (auto) 68.6 % (37.0-80.0); Nucleated Red Blood Cells % 0.1 %; Platelet Count (auto) 280 10^3/uL (140-450); Red Blood Cells 5.56 10^6/uL (4.0-5.20); Red Cell Distribution Width 14.5 % (11.8-14.3); White Blood Cell 10.3 10^3/uL (4.4-10.8)
[2025-01-31 15:18] LABS: COVID19 ANTIGEN SOFIA FIA NEGATIVE (NEGATIVE)
[2025-01-31 15:19] LABS: Rapid Influenza A Negative (Negative); Rapid Influenza B Negative (Negative)
[2025-01-31] MEDS ORDERED: LOSARTAN POTASSIUM 50 MG TAB PO STA (16:05)
--- NOTE | 2025-01-31 16:11 | DVHDSRES ---
Discharge Summary Date of Admission Resident Creating Document: CHRIS LYN RESIDENT Jan 27, 2025 at 21:28 Date of Discharge: Jan 31, 2025 Labs/Diagnostic Data: Laboratory Results Test 01/31/25 14:45 01/31/25 14:11 01/31/25 11:50 01/31/25 05:47 White Blood Count 10.3 10^3/uL (4.4-10.8) Red Blood Count 5.56 10^6/uL (4.0-5.20) Hemoglobin 16.4 g/dL (12.2-16.2) Hematocrit 48.5 % (36.0-46.0) Mean Corpuscular Volume 87.3 fL (80.0-100.0) Mean Corpuscular Hemoglobin 29.4 pg (28.0-32.0) Mean Corpuscular Hemoglobin Concent 33.7 g/dL (32.0-36.0) Red Cell Distribution Width 14.5 % (11.8-14.3) Platelet Count 280 10^3/uL (140-450) Mean Platelet Volume 7.5 fL (6.9-10.8) Neutrophils (%) (Auto) 68.6 % (37.0-80.0) Lymphocytes (%) (Auto) 22.4 % (10.0-50.0) Monocytes (%) (Auto) 6.3 % (0.0-12.0) Eosinophils (%) (Auto) 2.3 % (0.0-7.0) Basophils (%) (Auto) 0.4 % (0.0-2.0) Neutrophils # (Auto) 7.0 10 ^3/uL (1.6-8.6) Lymphocytes # (Auto) 2.3 10 ^3/uL (0.4-5.4) Monocytes # (Auto) 0.6 10 ^3/uL (0-1.3) Eosinophils # (Auto) 0.2 10 ^3/uL (0-0.8) Basophils # (Auto) 0 10 ^3/uL (0-0.2) Nucleated Red Blood Cells 0.1 % Influenza Type A Antigen Negative (Negative) Influenza Type B Antigen Negative (Negative) SARS-CoV-2 Antigen (Rapid) Negative (NEGATIVE) POC Glucose 277 mg/dl (70-106) Sodium Level 139 mmol/L (136-145) Potassium Level 3.7 mmol/L (3.5-5.1) Chloride Level 106 mmol/L (98-107) Carbon Dioxide Level 20 mmol/L (20-31) Anion Gap 13 (5-15) Blood Urea Nitrogen 14 mg/dL (9-23) Creatinine 0.72 mg/dL (0.550-1.02) Glomerular Filtration Rate Calc 101 mL/min (>90) BUN/Creatinine Ratio 19.4 (10.0-20.0) Serum Glucose 167 mg/dL (74-106) Calcium Level 10.4 mg/dL (8.7-10.4) Test 01/29/25 05:47 01/28/25 14:58 01/28/25 11:34 01/28/25 08:34 Vitamin D 25-Hydroxy 25.3 ng/mL (30.0-100) Cortisol PM Sample 7.07 ug/dL (3.44-16.76) Prothrombin Time 10.3 sec (9.3-11.8) Prothrombin Time INR 0.97 (0.9-1.15) Activated Partial Thromboplast Time 32.2 SEC (24.5-34.5) Cortisol AM Sample 19.57 ug/dL (5.27-22.45) Test 01/28/25 05:39 01/27/25 21:58 01/27/25 20:00 01/27/25 19:59 Magnesium Level 2.2 mg/dL (1.6-2.6) Troponin I High Sensitivity 857 ng/L (</=34) Erythrocyte Sedimentation Rate 10 mm/hr (0-20) Lactic Acid Level 1.5 mmol/L (0.4-2.0) Triglycerides Level 295 mg/dL (< 150) Cholesterol Level 226 mg/dL (< 200) LDL Cholesterol 149 mg/dL (< 100) HDL Cholesterol 33 mg/dL (40-59) Vitamin B12 Level 553 pg/mL (211-911) Folic Acid 27.54 ng/mL (>5.38) Thyroid Stimulating Hormone (TSH) 0.87 uIU/mL (0.55-4.78) Plasma/Serum Blood Alcohol < 3.0 mg/dL (<10) Urine Color Light-yellow (Yellow) Urine Clarity Clear (Clear) Urine pH 7.0 (5.0-9.0) Urine Specific [place] 1.047 (1.001-1.035) Urine Protein Negative (Negative) Urine Ketones 1+ (Negative) Urine Blood Negative /uL (Negative) Urine Nitrite Negative (Negative) Urine Bilirubin Negative (Negative) Urine Urobilinogen Normal mg/dL (Negative) Urine Leukocyte Esterase Negative /uL (Negative) Urine RBC 1 /hpf (0 - 4) Urine Microscopic WBC 1 /HPF (0-5) Urine Squamous Epithelial Cells Few /hpf (<5) Urine Bacteria Few /hpf (None Seen) Urine Creatinine 14.74 mg/dL (30.0-125.0) Urine Protein/Creatinine Ratio 0.56 Urine Glucose 4+ mg/dL (Normal) Urine Total Protein 8.3 mg/dL (1-14) Urine Test Negative (Negative) Urine Opiates Screen Neg (NEGATIVE) Urine Fentanyl Screen Neg (NEGATIVE) Urine Barbiturates Screen Neg (NEGATIVE) Urine Phencyclidine Screen Neg (NEGATIVE) Urine Amphetamines Screen Neg (NEGATIVE) Urine Benzodiazepines Screen Neg (NEGATIVE) Urine Cocaine Screen Neg (NEGATIVE) Urine Cannabinoids Screen Neg (NEGATIVE) Creatine Kinase 90 U/L (34-145) C-Reactive Protein High Sensitivity 0.56 mg/dL (<1.0) Test 01/27/25 19:12 01/27/25 19:08 Hemoglobin A1c 12.0 % A1C (<5.7) Total Bilirubin 0.7 mg/dL (0.2-1.0) Aspartate Amino Transferase (AST) 27 U/L (<34) Alanine Aminotransferase (ALT) 43 U/L (7-40) Alkaline Phosphatase 160 U/L (46-116) B-Type Natriuretic Peptide 9.26 pg/mL (0-100) Total Protein 6.6 g/dL (5.7-8.2) Albumin 4.2 g/dL (3.2-4.8) Beta-Hydroxybutyric Acid 0.473 mmol/L (< 0.4) Prolactin 18.47 ng/mL (2.8-29.2) Blood Gas Specimen Type Arterial Blood Gas Sample Site Left radial Blood Gas Patient Temperature 37.0 Arterial Blood Date Drawn [id number] Arterial Blood pH 7.499 (7.350-7.450) Arterial Blood Partial Pressure CO2 28.7 mmHg (32.0-45.0) Arterial Blood Partial Pressure O2 76.7 mmHg (83.0-108.0) Arterial Blood HCO3 21.8 mmol/L (21.0-28.0) Arterial Blood Oxygen Saturation 96.0 % (94.0-98.0) Arterial Blood Base Excess -0.1 mmol/L (-2.0-3.0) Arterial Blood Oxyhemoglobin 94.5 % (94.0-98.0) Arterial Blood Carboxyhemoglobin 1.0 % (0.5-1.5) Arterial Blood Methemoglobin 0.6 % (0.0-1.5) Donnie Test Yes Blood Gas Total Hemoglobin 14.50 g/dL (12.0-16.0) Blood Gas Modality Room air FiO2 % 21.0 Blood Gas Critical Value Read Back Yes Other Laboratory Tests 01/31/25 14:45 01/31/25 05:47 Brief Hx & Hospital Course: Ms. Encarnacion is a 54-year-old male with diabetes mellitus type 2 likely not taking metformin, hypertension on losartan who presented to the ER with symptoms of dysarthria. Patient appears frustrated given the inability to speak fluently. Daughter at bedside, reports that her symptoms started around 2:00 p.m. on 01/27 when she became a fluent, and could not convince her speech and was unable to speak what she wanted to. At the time her blood pressure systolic was 190 mmHg. Patient does not routinely monitor blood pressure. Per family, patient did not have any seizure-like activity, no loss of consciousness, no motor weakness, dysphagia or facial weakness. On my evaluation, patient appears frustrated, can not tell me where she is or what day or month it is. Patient can write her name, draw clock normally. Past medical history: Diabetes mellitus type 2, hypotension Surgical history: Cholecystectomy 20 years ago heme Medication history: Losartan, metformin ? Noncompliant Social history: Lives with , denies smoking/drinking/drug use During the hospitalization, Head CT ruled out acute hemorrhage, head and neck CT angio unremarkable for hemodynamically significant stenosis, occlusion, aneurysm or dissection. MRI brain showed Left parietal lobe and left insula diffusion restriction is consistent with an acute / hyperacute infarct. Neurology consultation-aspirin 325 loading dose follow up by aspirin 81 mg daily, Plavix, atorvastatin 80 mg daily, IV heparin drip. Neurologist recommended ANGELIQUE- cardiology, patient underwent ANGELIQUE on 06/20 which showed normal structural valves, LV systolic performance is preserved at 65%. Doppler reveals [id number] aortic insufficiency we will mild TR and mitral insufficiency. No pericardial effusion. No intra-atrial shins or defects were noted. Initially be maintained permissive hypertension for 48-72 hours, and we resume patient's home medication losartan on 01/31. Patient had NSTEMI, elevated troponin, EKG shows sinus tachycardia, aspirin atorvastatin was continued. Renal artery ultrasound was unremarkable given hypertensive crisis. Cardiology ruled out ACS. Patient was diagnosed with new uncontrolled type 2 diabetes-hemoglobin A1c 12 , Lantus and insulin sliding scale were continued. Diabetic education, how to monitor blood glucose and how to inject insulin was taught to the patient and daughter. Physical therapist saw the patient patient ambulated well. Discharge plan: Follow up with neurologist as outpatient within 7 days Follow up with physical therapist as outpatient Follow up with the discharge clinic appointment within 7 days Follow up with primary care physician Aspirin 81 mg daily Atorvastatin 40 mg HS daily Plavix 71 mg daily for 21 days Insulin lispro 5 units before meal Insulin Basaglar 15 units HS daily Resume medications Patient agreed to discharge planning. All questions and concerns answered. Operations or Procedures ORDERING PHYSICIAN: TAYLOR JAIMES RESIDENT PROCEDURE(s): [facility] - BRAIN HEAD WO CONTRAST REASON: rule out stroke ORDER NUMBER(s): [id number], ACCESSION NUMBER(s): [id number] MRI BRAIN HEAD WO CONTRAST INDICATION: rule out stroke EXAM DATE: 01/28/2025 07:51 AM COMPARISON: None PROCEDURE: Using a 1.5 Merary scanner, multisequence multiplanar imaging of the brain was obtained. FINDINGS: Left parietal lobe and left insula diffusion restriction is consistent with an acute infarct. The brain otherwise shows normal morphology and signal characteristics. No abnormal or susceptibility hypointensity is present. The ventricles are normal in size. The midline structures are intact. The major intracranial flow voids are present. The aerated spaces are normal. The orbital contents and extracranial soft tissues appear normal. IMPRESSION: Left parietal lobe and left insula diffusion restriction is consistent with an acute / hyperacute infarct. Critical Result: Infarct Findings discussed with , dr jaimes at 01/28/2025 08:28 AM and acknowledged receipt and understanding of the findings. ATED BY: SANJAY MANCILLA MD DICTATED DATE/TIME: 01/28/25828 SIGNED BY: SANJAY MANCILLA MD SIGNED DATE/TIME: 01/28/25828 CC: ORDERING PHYSICIAN: NYA COTTO MD PROCEDURE(s): [facility] - ANGIO HEAD/Neck REASON: suspected stroke ORDER NUMBER(s): [id number], ACCESSION NUMBER(s): [id number] INDICATION: suspected stroke COMPARISON: None TECHNIQUE: CTA head without and with intravenous contrast. CTA neck with intravenous contrast. 3D image postprocessing was performed on a dedicated workstation and images were used for interpretation and reporting. Radiation Dose Information: CT Dose: CTDI volume is 52.17 mGy. Dose-length product is 1554.63 mGy*cm FINDINGS: CT head: There is no evidence of acute intracranial hemorrhage, extra-axial collection, mass effect, midline shift, herniation or hydrocephalus. The ventricles, sulci and cisterns are age appropriate. The young-white differentiation is intact. The visualized paranasal sinuses and mastoid air cells are clear. The surrounding soft tissues and osseous structures are unremarkable. CTA head: There is normal enhancement of the visualized distal internal carotid, anterior and middle cerebral arteries. There is a normal anterior communicating artery complex. There are bilateral posterior communicating arteries. The vertebral, basilar, cerebellar and posterior cerebral arteries are within normal limits. The early parenchymal enhancement is grossly unremarkable. The visualized intracranial venous structures are grossly unremarkable. CTA neck: The visualized thoracic aortic arch and proximal great vessels are unremarkable. The left common, internal and external carotid arteries are within normal limits. The right common, internal and external carotid arteries are within normal limits. The cervical segments of the right and left vertebral arteries are within normal limits. The limited visualized lung apices are clear. The surrounding soft tissues and osseous structures are otherwise unremarkable. IMPRESSION: No evidence of acute intracranial hemorrhage, mass effect or hydrocephalus. No evidence of hemodynamically significant intracranial stenosis, proximal occlusion or aneurysm. No evidence of hemodynamically significant cervical stenosis or dissection. All CT scans at this medical facility are performed using dose modulation techniques as appropriate to a performed exam including the following: Automated exposure control was utilized; adjustment of the MA and/or KV according to patient size; and use of iterative reconstruction technique. ATED BY: EMMANUEL ATKINSON MD DICTATED DATE/TIME: 01/27/252109 SIGNED BY: EMMANUEL ATKINSON MD SIGNED DATE/TIME: 01/27/252109 CC: IMPRESSION: No findings to suggest renal artery stenosis. *[facility] in Noninvasive Vascular Diagnosis 2001 Condition at Discharge: Good Final Diagnosis/Problems List Acute stroke-left parietal lobe Expressive aphasia Hypertensive emergency Uncontrolled hypertension Dyslipidemia NSTEMI likely type 2 secondary to above Uncontrolled type 2 diabetes mellitus-A1c 12 Likely sleep apnea Vitamin-D deficiency Discharge Disposition: Home Discharge Instruct/Medications Diet: Cardiac 2g Na,low cholest Activity: Light activity Follow Up/Referral: Follow up with neurologist as outpatient within 7 days Follow up with physical therapist as outpatient Follow up with the discharge clinic appointment within 7 days Follow up with primary care physician Medications: Aspirin 81 mg daily Atorvastatin 40 mg HS daily Plavix 71 mg daily for 21 days Resume medications Discharge Statement: "Patient was advised to return to the ER or call 911 if any headaches, dizziness, shortness of breath, chest pain, abdominal pain, bleeding, fevers, or worsening of medical condition. Patient was counseled about treatment plan, medications, possible side effects, patientverbalized understanding. All questions were answered to the best of my ability. This discharge took greater then 30 minutes in planning, reviewing documentation, counseling the patient, and discussing with other team members." ASSESSMENT ASSESSMENT Assessment Acute left parietal lobe stroke Expressive aphasia Date of Service: Jan 31, 2025 Billing Provider: TONEY TODD MD Common Visit Codes: 47882-JJO/OBS DISCH DAY >30min CHRIS LYN RESIDENT Jan 31, 2025 16:11 TONEY TODD MD Feb 01, 2025 11:45
[2025-01-31] MEDS: NIFEdipine ER 30 MG TAB PO STA (16:24)
[2025-01-31] MEDS ORDERED: BLOO-169 XX (16:32)
[2025-01-31] MEDS ORDERED: INSU1INJ19 SC (16:32)
[2025-01-31] MEDS ORDERED: GLUC-224 VI (16:32)
[2025-01-31] MEDS ORDERED: INSU100I54 SC (16:32)
[2025-01-31] MEDS ORDERED: ISOP70MI2 EX (16:33)
[2025-01-31] MEDS ORDERED: LANC-347 XX (16:33)
[2025-01-31] MEDS ORDERED: METF-370 PO (17:33)
[2025-01-31] MEDS: hydrALAZINE HCL 20 MG/ML VL IV STA (18:02)
[2025-01-31] MEDS: cloNIDine HCL 0.1 MG TAB PO ONE (20:17)
[2025-02-01] MEDS ORDERED: LOSARTAN POTASSIUM 50 MG TAB PO SCH (10:00)
[2025-02-01] MEDS ORDERED: INSU31MI XX (16:22)
== END 2025-01-31 21:04 | disposition home or self-care (01) | DRG 45 ==
LOC: ER 18:15 → OVERFLOW 21:28 → TELE-EAST 01-29 13:15
PROVIDERS: ADMIT Internal Medicine; ATTEND Internal Medicine
PROC: B24BZZ4 Ultrasonography of Heart with Aorta, Transesophageal (ICD-10-PCS; principal; 2025-01-29)
DX: I63.9 Cerebral infarction, unspecified (principal); I21.A1 Myocardial infarction type 2; I67.4 Hypertensive encephalopathy; Z20.822 Contact with and (suspected) exposure to COVID-19; I16.1 Hypertensive emergency; R47.01 Aphasia; I10 Essential (primary) hypertension; E78.5 Hyperlipidemia, unspecified; G47.30 Sleep apnea, unspecified; E66.3 Overweight; E11.65 Type 2 diabetes mellitus with hyperglycemia; R29.702 NIHSS score 2; E55.9 Vitamin D deficiency, unspecified; Z83.3 Family history of diabetes mellitus; Z82.49 Family history of ischemic heart disease and other diseases of the circulatory system; Z82.3 Family history of stroke; Z79.899 Other long term (current) drug therapy; Z79.82 Long term (current) use of aspirin; Z90.49 Acquired absence of other specified parts of digestive tract; Z68.28 Body mass index [BMI] 28.0-28.9, adult
CPT/HCPCS: 36415; 36600; 70496; 70498; 70551; 71045; 80048; 80053; 80061; 80307; 80320; 81001; 81025; 82010; 82306; 82533; 82550; 82570; 82607; 82746; 82805; 82962; 83036; 83605; 83735; 83880; 84146; 84156; 84443; 84484; 85025; 85610; 85652; 85730; 86141; 87040; 87426; 87804; 92610; 93005; 93312; 93975; 96365; 96375; 97110; 97116; 97163; 97530; 99152; G0378; J1815; J2250